=== PATIENT | male | born 1940 | race Caucasian/White ===

== ENCOUNTER 2018-12-30 18:23 | Inpatient (IN) | payer MEDICARE ==
[2018-12-30] VITALS (13 sets, daily range): BP systolic 81–156; BP diastolic 29–90
[~2018-12-30] VITALS: Ht 167.6 cm; Wt 58.7 kg
[~2018-12-30 18:23] MED LIST: AMLO10TA8 PO; AMLO1TAB12 PO; ASPI-484 PO; ASPI-667 PO; CEPH-350 PO; CHOL2000 PO; DICL75TA2 PO; FINA5TAB4 PO; FLUT1AER IH; HYDR25TA9 PO; LEVO25TA4 PO; METO25TA2 PO; OMEP20CA13 PO; PRAV20TA2 PO; RANO500T2 PO; ROSU10TA2 PO; SILO8CAP2 PO; SOLU-MEDROL IV STA; TOPI50TA8 PO; VALS160T3 PO
--- NOTE | 2018-12-30 18:24 | ER.PDOC ---
General Chief Complaint: Requesting Medical Care Stated Complaint: SYNCOPE Time seen by MD: 18:33 Source: patient, EMS Exam Limitations: no limitations, clinical condition History of Present Illness Initial Comments 2 min cpr for pulselessness Timing/Prior Episodes: single episode today Symptoms Prior to Episode: lightheadedness Loss of Consciousness: Prolonged (Minutes) Location of Injury: None Current Symptoms: lightheadedness, weak/absent pulse, weakness Allergies: Coded Allergies: No Known Allergies (Unverified , 04/13/17) Home Meds Active Scripts Metoprolol Succinate (TOPROL XL) 25 Mg Tab.er.24h, 25 MG PO daily for 30 Days Prov:MONCHO MEDLEY MD 04/20/17 Cephalexin (KEFLEX) 500 Mg Capsule, 500 MG PO TID for 7 Days Prov:MONCHO MEDLEY MD 04/20/17 Aspirin (ASPIRIN) 81 Mg Tab.chew, 81 MG PO daily for 30 Days Prov:MONCHO MEDLEY MD 04/20/17 Reported Medications Aspirin (ASPIRIN) 81 Mg Tab.chew, 1 TAB PO DAILY, #30 TAB 3 Refills 04/14/17 Fluticasone/Vilanterol (Breo Ellipta 100-25 Mcg INH) 1 Each Aer.pow.ba, 1 EACH IH DAILY 04/14/17 Rosuvastatin 10MG (CRESTOR 10MG) 10 Mg Tablet, 1 TAB PO DAILY, #30 TAB 5 Refills 04/14/17 Silodosin (RAPAFLO) 8 Mg Capsule, 1 CAP PO DAILY, #30 CAP 5 Refills 04/13/17 Amlodipine/Valsartan (EXFORGE 5-160 MG TABLET) 1 Each Tablet, 1 TAB PO DAILY, #30 TAB 5 Refills 04/13/17 Finasteride (FINASTERIDE) 5 Mg Tablet, 1 TAB PO DAILY, #30 TAB 11 Refills 04/13/17 Cholecalciferol (Vitamin D3) (VITAMIN D) 2,000 Unit Capsule, 1 CAP PO HS, #90 CAP 3 Refills 12/10/14 Topiramate (TOPIRAMATE) 50 Mg Tablet, 1 TAB PO HS, #60 TAB 12/10/14 Levothyroxine Sodium (LEVOTHYROXINE SODIUM) 25 Mcg Tablet, 1 TAB PO HS, #90 TAB 3 Refills 12/10/14 Omeprazole (OMEPRAZOLE) 20 Mg Capsule.dr, 1 CAP PO DAILY, #90 CAP 3 Refills 12/10/14 Past Medical History Medical History: arrhythmia, coronary artery disease, cardiac problems, congestive heart failure, other Surgical History: cardiac cath, pacemaker/ICD, other Family History Significant Family History: no pertinent family hx Social History Smoking: non-smoker Alcohol Use: none Drug Use: none Reviewed Nursing Reviewed: Vital Signs, Abn. Noted Review of Systems Constitutional: no symptoms reported EENTM: no symptoms reported Respiratory: shortness of breath Cardiovascular: chest pain Gastrointestinal: no symptoms reported Genitourinary: no symptoms reported Musculoskeletal: see HPI, other Skin: no symptoms reported Psychiatric/Neurological: no symptoms reported All Other Systems: Reviewed and Negative Physical Exam General Appearance: No Apparent Distress, WD/WN, Cachetic HEENT: PERRL/EOMI, Normal ENT Inspection, TMs Normal, Pharynx Normal Neck: Non-Tender, Full Range of Motion, Supple, Normal Inspection Cardiovascular/Respiratory: Regular Rate, Rhythm, No M/R/G, Normal Peripheral Pulses, No JVD, Normal Breath Sounds, No Respiratory Distress Gastrointestinal: Normal Bowel Sounds, No Organomegaly, No Pulsatile Mass, Non Tender, Soft Extremities: Normal Range of Motion, Non-Tender, Normal Inspection, No Pedal Edema, No Calf Tenderness, Normal Capillary Refill Psychiatric: Alert, Oriented x 3 Cranial Nerves: Normal Hearing, Normal Speech, PERRL Coordination/Gait: Normal Finger to Nose, Normal Gait, Negative Romberg's Sign Motor/Sensory: No Motor Deficit, No Sensory Deficit, No Pronator Drift, Negative Babinski's Sign Skin: Normal Color, Warm/Dry Lymphatic: No Adenopathy Comments CHEST ABRASION TO ANT CHEST. NOTE PATIENT INITIALLY SEEN BY DR SIMMS, Results/Orders Results/Orders Orders - IRVIN TIWARI DO Ct Head Wo Contrast (12/30/18 19:45) Potassium Chloride (Klor-Con 10) (12/30/18 20:00) Lactic Acid(Rt) (12/30/18 19:53) Arterial Blood Gas (12/30/18 20:17) Admit Orders (12/30/18 20:25) Vital Signs Date Time Temp Pulse Resp B/P (MAP) Pulse Ox O2 Delivery O2 Flow Rate FiO2 12/30/18 20:48 83 22 98/58 (71) 96 Nasal Canula 2.00 12/30/18 20:32 78 22 102/50 (67) 96 Nasal Canula 2.00 12/30/18 20:03 81 22 118/60 (79) 96 Nasal Canula 2.00 12/30/18 19:46 77 22 123/58 (79) 96 Nasal Canula 2.00 12/30/18 18:43 64 24 156/90 (112) 98 Nasal Canula 2.00 12/30/18 18:32 97.6 79 30 99/43 (61) 97 Non-Rebreather 97.6 12/30/18 18:32 97.6 79 30 97.6 12/30/18 18:32 97.6 79 30 Non-Rebreather 97.6 Administered Medications Medications (Trade) Dose Ordered Sig/Steff Route PRN Reason Start Time Stop Time Status Last Admin Dose Admin Levothyroxine Sodium (Levothyroxine Sodium) 25 mcg HS PO 12/30/18 21:00 01/29/19 20:59 12/30/18 21:57 25 MCG Methylprednisolone Sodium Succinate (Solu-Medrol) 250 mg STAT STAT IV 12/30/18 18:05 12/30/18 18:09 DC 12/30/18 18:42 250 MG Pantoprazole Sodium (Protonix Iv) 40 mg STAT STAT IV 12/30/18 20:33 12/30/18 21:01 DC 12/30/18 21:56 40 MG Potassium Chloride/Sodium Chloride 1,000 ml @ 125 mls/hr Q8H IV 12/30/18 20:30 01/29/19 20:29 12/30/18 21:56 125 MLS/HR Potassium Chloride 100 ml @ 50 mls/hr OT ONCE IV 12/30/18 20:30 12/30/18 22:29 DC 12/30/18 21:55 50 MLS/HR Sodium Chloride 1,000 ml @ 0 mls/hr Q0M ONCE IV 12/30/18 18:30 12/30/18 18:31 DC 12/30/18 18:42 1,200 MLS/HR Laboratory Tests Test 12/30/18 18:32 12/30/18 19:53 12/30/18 20:17 White Blood Count 3.4 10^3/uL (4.5-11.0) L Red Blood Count 3.97 10^6/uL (4.50-5.90) L Hemoglobin 12.3 g/dL (13.9-16.3) L Hematocrit 35.8 % (37.0-53.0) L Mean Corpuscular Volume 90.2 fL (78-100) Mean Corpuscular Hemoglobin 31.0 pg (26-34) Mean Corpuscular Hemoglobin Concent 34.4 g/dL (33-37) Red Cell Distribution Width 14.1 % (11.5-14.5) Platelet Count 185 10^3/uL (150-400) Mean Platelet Volume 10.6 fL (7.8-11.0) Neutrophils (%) (Auto) 82.3 % (41.0-85.0) Lymphocytes (%) (Auto) 8.5 % (24.0-44.0) L Monocytes (%) (Auto) 7.4 % (5.0-12.0) Neutrophils # (Auto) 2.8 10^3/uL (1.8-7.7) Lymphocytes # (Auto) 0.3 10^3/uL (1.0-4.8) L Monocytes # (Auto) 0.3 10^3/uL (0.3-0.8) Absolute Immature Granulocyte (auto 0.01 10^3 u/L (0-2) Immature Granulocytes % 0.30 % (0.00-0.50) Eosinophils % 0.6 % (0.0-5.0) Basophils % 0.9 % (0.0-0.2) H Basophils # 0.0 10^3/uL (0.0-0.1) Eosinophil Count 0.0 10^3/uL (0.0-0.2) Prothrombin Time 10.9 SEC (9.8-11.9) Prothrombin Time INR (Non-Therap) 1.1 D-Dimer 5.65 mg/L (0.19-0.49) *H Sodium Level 149 mmol/L (132-145) #H Potassium Level 2.2 mmol/L (3.6-5.2) *L Chloride Level 112.0 mmol/L (96-109) H Carbon Dioxide Level 20.3 mmol/L (20.0-32) Anion Gap 18.9 Blood Urea Nitrogen 60 mg/dL (7-18) H Creatinine 1.52 mg/dL (0.59-1.40) H Estimated GFR () 54.1 (>/=60) BUN/Creatinine Ratio 39.0 Glucose Level 134 mg/dL (70-110) H Calcium Level 7.4 mg/dL (8.4-10.5) L Magnesium Level 1.7 mg/dL (1.8-2.4) L Total Bilirubin 0.4 mg/dL (0.2-1.0) Aspartate Amino Transferase (AST) 14 U/L (0-35) Alanine Aminotransferase (ALT) 14 U/L (12-78) Alkaline Phosphatase 42 U/L (50-136) L Total Creatine Kinase 132 U/L (39-308) Troponin I < 0.02 ng/mL (0.00-0.05) Pro-B-Type Natriuretic Peptide 3866 pg/mL (0-450) H Total Protein 5.3 g/dL (6.4-8.2) L Albumin 1.8 g/dL (3.4-5.0) L Globulin 3.5 Helicobacter pylori Screen NEGATIVE (NEGATIVE) Blood Gas Sample Site RR RR Aly Test POSITIVE POSITIVE Lactic Acid (Blood Gas) 1.2 mmol/1 (0.50-2.0) 1.4 mmol/1 (0.50-2.0) Blood Gas Temperature 37 37 Blood pH 7.404 (7.350-7.450) Blood Gas PCO2 25.0 mmHg (35.0-45.0) L Blood Gas PO2 75.9 mmHg (80.0-100.0) L Blood Gas HCO3 15.3 mmol/L (22.0-26.0) L Blood Gas Base Excess -7.7 mmol/L (-2.0-2.0) L Arterial Blood Oxygen Saturation 93.8 % (94.0-97.00) L Deoxyhemoglobin 6.0 % (0.0-5.0) H Carboxyhemoglobin 1.5 % (0.0-3.9) Methemoglobin 1.0 % (0.00-5.0) Total Hemoglobin 13.3 % (12.0-17.8) Total Oxygen Concentration 17.2 % (13.5-17.5) Oxygen Delivery Method RA FiO2 21 % (20-101) Bicarbonate 16.0 mmol/L (23-27) L Progress Progress dr matheus TO ME AT 1928, CHART REVIEWED. EKG/XRAY/CT/US EKG Comments: PACED RHYTHM Consult/PCP Time Consult/PCP Called: 20:00 Consult/PCP: DR MEDLEY, WILL CALL BACK #2 Time Consult/PCP Called: 20:25 Consult/PCP: DR MEDLEY, GET ABG AND ADMIT TO ICU Departure Time of Disposition: 20:24 Disposition: 09 ADMITTED INPATIENT Impression: Primary Impression: Syncope Additional Impressions: Hypokalemia Dehydration Condition: Stable Duration or Time Spent with Pa: 20 MIN Problem Qualifiers TANVIR SIMMS MD Dec 30, 2018 18:24 IRVIN TIWARI DO Dec 30, 2018 20:02
[2018-12-30] MEDS ORDERED: NS 1000ML 1,000 ML IV ONE (18:30)
--- NOTE | 2018-12-30 18:39 | DIREP ---
PROCEDURE:CHEST 1 VIEW COMPARISON:[facility], CR, XRAY CHEST 2 VWS, 04/19/2017, 09:40 AM. INDICATIONS:dyspnea FINDINGS: LUNGS/PLEURA:No significant pulmonary parenchymal abnormalities. No effusions. VASCULATURE:Normal. Unremarkable pulmonary vasculature. CARDIAC:Normal. No cardiac silhouette abnormality or cardiomegaly. Pacemaker MEDIASTINUM:Normal. No visible mass or adenopathy. BONES:Mild degenerative disc disease and spondylosis without visible acute abnormalities. OTHER:Negative. CONCLUSION:No acute findings. No significant interval change Dictated by: Elio Her MD on 12/30/2018 at 06:38 PM
[2018-12-30] MEDS ORDERED: NS 1000ML 1,000 ML ONE (18:40)
[2018-12-30] MEDS ORDERED: SOLU-MEDROL ONE (18:41)
[2018-12-30 19:01] LABS: BASOPHIL % 0.9 % (0.0-0.2); EOSINOPHIL % 0.6 % (0.0-5.0); HEMOGLOBIN 12.3 g/dL (13.9-16.3); LYMPHOCYTES # 0.3 10^3/uL (1.0-4.8); LYMPHOCYTES % 8.5 % (24.0-44.0); MEAN CELL HGB CONCENTRATION 34.4 g/dL (33-37); MEAN CORP VOLUME 90.2 fL (78-100); MEAN PLATELET VOLUME 10.6 fL (7.8-11.0); MONOCYTES # 0.3 10^3/uL (0.3-0.8); MONOCYTES % 7.4 % (5.0-12.0); NEUTROPHIL # 2.8 10^3/uL (1.8-7.7); NEUTROPHILS % 82.3 % (41.0-85.0); RED CELL DISTRIBUTION WIDTH 14.1 % (11.5-14.5); WHITE BLOOD CELL 3.4 10^3/uL (4.5-11.0)
[2018-12-30 19:32] LABS: ALANINE AMINOTRANSFERASE(ML) 14 U/L (12-78); ALKALINE PHOSPHATASE 42 U/L (50-136); ASPARTATE AMINO TRANSFERASE 14 U/L (0-35); CALCIUM 7.4 mg/dL (8.4-10.5); CARBON DIOXIDE 20.3 mmol/L (20.0-32); GLUCOSE 134 mg/dL (70-110)
--- NOTE | 2018-12-30 19:59 | NUR ---
Vale Blanco on phone with Dr. Collazo
[2018-12-30] MEDS ORDERED: KLOR-CON 10 PO SCH (20:00)
--- NOTE | 2018-12-30 20:07 | DIREP ---
PROCEDURE:CT HEAD OR BRAIN W/O CONTRAST COMPARISON:None. INDICATIONS:SYNCOPE TECHNIQUE:CT images were created without intravenous contrast. FINDINGS: VENTRICLES:There is moderate prominence of the ventricles and cortical sulci consistent with age related involutional changes. CEREBRUM:Small nonspecific foci of diminished attenuation in the supratentorial white matter. CEREBELLUM:Negative. BRAINSTEM:Negative. BASAL CISTERNS:Negative. HEMORRHAGE:No MASS LESION:No ACUTE INFARCT:No SKULL:Normal. SINUSES:Some of the left mastoid air cells appear opacified OTHER:None CONCLUSION:Atrophy and white matter disease. No acute findings are identified Dictated by: Elio Her MD on 12/30/2018 at 08:06 PM
[2018-12-30 20:13] LABS: ALLEN TEST POSITIVE
[2018-12-30 20:23] LABS: ABG PH 7.404 (7.350-7.450); BE(B) -7.7 mmol/L (-2.0-2.0); HCO3act 15.3 mmol/L (22.0-26.0); pO2 75.9 mmHg (80.0-100.0)
[2018-12-30] MEDS ORDERED: KCL 20MEQ/100ML 100 ML IV ONE (20:30)
[2018-12-30] MEDS ORDERED: PROTONIX IV IV STA (20:33)
[2018-12-30] MEDS: PULMICORT IH SCH (21:00)
[2018-12-30] MEDS: CARAFATE PO SCH (21:00)
[2018-12-30] MEDS: XOPENEX IH SCH (21:00)
[2018-12-30] MEDS ORDERED: ZOFRAN IV PRN (21:00)
--- NOTE | 2018-12-30 21:34 | NUR ---
Pt on unit Pt arrived on unit via stretcher accompanied by this nurse and Kori Olivera RN. Pt oriented to room. Bed side monitor placed on pt. fluids provided. Pt refuses brody placement. Educated pt on need for brody but still refuses. Pt sitting up in bed watching TV. Family at bedside. Call light within reach.
[2018-12-30] MEDS ORDERED: PROTONIX IV IV ONE (21:47)
[2018-12-30] MEDS ORDERED: NS 500ML 500 ML IV ONE (21:48)
[2018-12-30] MEDS: NS 1000 ML/KCL 40MEQ 1,000 ML IV SCH (21:56)
[2018-12-30] MEDS: LEVOTHYROXINE SODIUM PO SCH (21:57)
[2018-12-30] MEDS ORDERED: MAGNESIUM SULFATE 50 ML IV ONE (23:30)
[2018-12-31] VITALS (72 sets, daily range): BP systolic 91–130; BP diastolic 33–69
[2018-12-31] MEDS: XOPENEX IH SCH ×4 (02:54→21:02)
[2018-12-31] MEDS: NS 1000 ML/KCL 40MEQ 1,000 ML IV SCH (04:36)
[2018-12-31 05:46] LABS: BASOPHIL % 0.7 % (0.0-0.2); EOSINOPHIL % 0.2 % (0.0-5.0); HEMOGLOBIN 13.1 g/dL (13.9-16.3); LYMPHOCYTES # 0.4 10^3/uL (1.0-4.8); LYMPHOCYTES % 8.7 % (24.0-44.0); MEAN CELL HGB 31.3 pg (26-34); MEAN CORP VOLUME 89.5 fL (78-100); MEAN PLATELET VOLUME 10.6 fL (7.8-11.0); MONOCYTES # 0.2 10^3/uL (0.3-0.8); MONOCYTES % 3.8 % (5.0-12.0); NEUTROPHIL # 3.9 10^3/uL (1.8-7.7); NEUTROPHILS % 86.6 % (41.0-85.0); PLATELET COUNT 177 10^3/uL (150-400); RED CELL DISTRIBUTION WIDTH 14.2 % (11.5-14.5); WHITE BLOOD CELL 4.5 10^3/uL (4.5-11.0)
[2018-12-31 06:02] LABS: ALANINE AMINOTRANSFERASE(ML) 15 U/L (12-78); ALKALINE PHOSPHATASE 43 U/L (50-136); ASPARTATE AMINO TRANSFERASE 16 U/L (0-35); CALCIUM 7.7 mg/dL (8.4-10.5); GLUCOSE 188 mg/dL (70-110)
[2018-12-31 06:27] LABS: BAND NEUTROPHILS 8 % (2-6); LYMPHOCYTE 12 % (25-36); MONOCYTE 0 % (3-9); SEGMENTED NEUTROPHILS 75 % (31-76)
[2018-12-31 06:28] LABS: EOSINOPHIL 1 % (1-4)
[2018-12-31] MEDS ORDERED: KCL 20MEQ/100ML 100 ML IV ONE (07:00)
[2018-12-31] MEDS ORDERED: D5W-1/2 NS/KCL 20MEQ 1,000 ML IV ONE (07:00)
--- NOTE | 2018-12-31 07:50 | NUR ---
BSC Assisted pt up to bedside commode x1 assist. Patient incontinent of bowel. 450 cc of loose yellow/brown stool mixed with urine noted with foul smell. Bathed patient using CHG wipes. Eunice care provided. Gown changed. Assisted pt back to bed for breakfast. No s/s of distress noted.
[2018-12-31] MEDS ORDERED: D5W-1/2NS/KCL 40MEQ 1,000 ML ONE ×2 (08:13→16:41)
[2018-12-31] MEDS ORDERED: CARAFATE ONE ×3 (08:13→16:58)
[2018-12-31] MEDS: CARAFATE PO SCH ×4 (08:16→21:08)
[2018-12-31] MEDS: KLOR-CON 10 PO SCH (08:19)
[2018-12-31] MEDS ORDERED: PULMICORT IH ONE (08:41)
[2018-12-31] MEDS ORDERED: XOPENEX IH ONE (08:41)
[2018-12-31] MEDS: D5W-1/2NS/KCL 40MEQ 1,000 ML IV SCH ×2 (09:00→16:48)
--- NOTE | 2018-12-31 09:30 | NUR ---
BSC Assisted pt up to bedside commode. 350 cc of yellow loose bowel movement and urine mixed noted. Eunice care provided. Clean brief applied per patient's request. Pt back to bed and placed back on bedside monitor. No s/s of distress noted. Daughter at bedside, and call light within reach. Will continue to monitor.
[2018-12-31] MEDS: PULMICORT IH SCH ×2 (09:43→21:02)
[2018-12-31] MEDS ORDERED: FLAGYL 500MG/ 100 ML NS 100 ML IV ONE ×2 (09:46→10:00)
--- NOTE | 2018-12-31 09:47 | NUR ---
Dr. Aj Rocha on phone checking on patient's status. Notified of current vital signs and lab results, and frequent liquid bowel movements. New orders received for cdiff sample, Flagyl 500mg IV q8hr, EKG this am, and to redraw CMP at 1600. RBTO.
--- NOTE | 2018-12-31 10:18 | PCM.EKG ---
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
[2018-12-31] MEDS: FLAGYL 500MG/ 100 ML NS 100 ML IV SCH ×2 (10:31→18:18)
--- NOTE | 2018-12-31 11:08 | PCM.EKG ---
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
--- NOTE | 2018-12-31 12:32 | HPH ---
ADMIT DATE: 12/30/2018 The patient was admitted in the late evening of 12/30/2018. I was called and I did put the orders on 12/30/2018. CHIEF COMPLAINT: Syncope with transient loss of consciousness, diarrhea, vomiting for 10 days, metabolic abnormalities. 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 His LV function was intact and he comes for followup on a periodic basis in the clinic for his pacer check and he had 10 day history of nausea, vomiting, diarrhea, had about 8-10 loose watery stools and low grade temperature. Did not see a physician, felt like he was going to get better on his own. He did not have any blood in his vomit or loose stools. He vomited half a dozen time to 10 times a day. No appetite and when he came in, he had multiple metabolic abnormalities with hypovolemia, hypotension with blood pressure 80/50. He got 2 liters of fluid in the Emergency Room and his temperature was normal, had a compensated pH, but had metabolic acidosis with respiratory alkalosis with normal pH with a bicarbonate of 16 and a potassium of 2.2, magnesium 1.6 and had significant acute kidney injury with BUN of 16, creatinine 1.52, which were normal in the office. Hence, was admitted with multiple biochemical abnormalities along with hypovolemia, hypotension with severe diarrhea and syncopal episode for further evaluation and management. ALLERGIES: None known. MEDICATIONS: He has been on metoprolol 25 mg once a day, aspirin 81 mg once a day and Breo Ellipta 1 puff daily, Crestor 10 mg once a day. He is on Rapaflo 8 mg daily which is for his prostate, amlodipine/valsartan (Exforge) 160-5 one tablet daily, finasteride 5 mg once a day, vitamin D3 2000 units daily and topiramate 50 mg once a day, Levothroid 25 mcg once a day, omeprazole 20 mg once a day. PAST MEDICAL HISTORY: History of degenerative conduction system disease and bradyarrhythmia post-pacer 2 years ago and non-flow obstructive coronary artery disease and intact LV systolic function, hypertension, hypertensive heart disease, chronic diastolic heart failure with moderately severe COPD with poor reactive component, has been on Breo-Ellipta and he has been doing well on multiple therapies, has lost significant weight recently, has chronic diastolic heart failure. SOCIAL HISTORY: Prior history of significant 40-50 pack years of smoking, not smoking at the present time. FAMILY HISTORY: Unremarkable. Not much history could be obtained. PHYSICAL EXAMINATION: GENERAL: When I saw him 1:1 on 12/31/2018, he felt almost 50% better, but at the time of admission in the Emergency Room, was lethargic, weak and his cognitive functions were decreased, but he is alert, awake, oriented and responsive and has a good comprehension and cognition. Height is 157 cm and 40.8 kilograms with a BMI 17.8. VITAL SIGNS: Heart rate is 100 and blood pressure 95/56 and respirations were 18, 99 saturation on 2 liters nasal cannula. He has had urine output close to total of 1200 mL and has had 3 loose BM this morning. HEENT: Leant and asthenically built and sunken eyeballs and appears to have dry skin and mucous membrane, but his higher mental functions are intact. HEENT, otherwise, unremarkable. NECK: No JVD, no carotid bruits. CHEST: Emphysematous chest. Poor air entry bilaterally. HEART: Sounds S1, S2 normal. Tachycardia noted. ABDOMEN: Scaphoid. Bowel sounds were present. No definite focal tenderness was noted. No organomegaly was elicited. Bowel sounds present. EXTREMITIES: Distal pulses poorly felt. NEUROLOGIC: No focal neuro deficit is noted. Proximal muscle wasting noted. LABORATORY DATA: Showed CBC of 12.3 hemoglobin, 3.4 white count and 2.2 potassium and 60 BUN and creatinine 1.52, 1.7 magnesium, 3866 ProBNP, troponin 0.02 and total protein 5.3, albumin 1.9, which is very low and D-dimer 5.6. Blood gas 7.40 pH with a pCO2 of 25, pO2 of 75 with a bicarbonate of 15 and lactic was 1.2 and subsequently 1.4. IMAGING STUDIES: Head CT showed cerebral atrophy consistent with his age and no strokes were noted and chest x-ray was unremarkable. IMPRESSION: 1. Hypotension, hypovolemia, dehydration, acute kidney injury due to severe diarrhea and nature of the diarrhea is unclear. It has been for 10 days and no blood in the stool is noted, but still one needs to be sure that he does not have Yersenia enterocolitis or Campylobacter diarrhea or other organisms are also possible with Shigella and salmonellosis with low-grade fever, but his leukocyte count is normal, but he does have multiple biochemical abnormalities, will require colonoscopy at some point in time, we will start him empirically Flagyl 2. Hypokalemia, hypomagnesemia, metabolic acidosis with compensatory respiratory alkalosis, chronic obstructive pulmonary disease, hypertension, hypertensive heart disease and degenerative conduction system disease post-pacer. PLAN: At this time, continue IV fluids, potassium replacement with potassium riders and oral potassium and bland diet and stool studies and further management will depend on the clinical course. Laxmichand MD Aj DR: NAEESH/parminder JOB# [id number]
[2018-12-31 13:15] LABS: BILIRUBIN,URINE NEGATIVE (NEGATIVE); UROBILINOGEN,URINE NORMAL (NEGATIVE)
[2018-12-31] MEDS ORDERED: IMODIUM PO PRN (13:30)
[2018-12-31 13:44] LABS: APPEARANCE,URINE SLIGHTLY HAZY (CLEAR); UA COLOR AMBER (YELLOW)
[2018-12-31] MEDS: BUMINATE 25% IV SCH ×2 (14:56→21:08)
[2018-12-31 16:44] LABS: CALCIUM 8.2 mg/dL (8.4-10.5); CARBON DIOXIDE 16.1 mmol/L (20.0-32)
--- NOTE | 2018-12-31 17:29 | NUR ---
Dr. Aj Rocha notified of lab results and stool specimen results. Also made aware of blood sugar of 358 and patient is on [id number]. Awaiting response.
[2018-12-31] MEDS ORDERED: BUMINATE 25% IV SCH (18:00)
[2018-12-31] MEDS ORDERED: NS 250ML 250 ML IV ONE (18:01)
--- NOTE | 2018-12-31 18:40 | NUR ---
Dr. Aj Rocha on phone. Notified of positive occult blood in stool, blood glucose of 358, potassium of 3.1, and current fluids. New order received to keep on same fluids with sliding scale insulin coverage per his protocol. RBTO.
[2018-12-31] MEDS: LEVOTHYROXINE SODIUM PO SCH (21:07)
[2018-12-31] MEDS: TOPAMAX PO SCH (21:08)
[2018-12-31] MEDS: HUMULIN R SQ SCH (21:33)
[2019-01-01] VITALS (16 sets, daily range): BP systolic 112–135; BP diastolic 39–75
[2019-01-01] MEDS: FLAGYL 500MG/ 100 ML NS 100 ML IV SCH ×3 (02:02→18:29)
[2019-01-01] MEDS: D5W-1/2NS/KCL 40MEQ 1,000 ML IV SCH ×2 (02:28→13:28)
[2019-01-01] MEDS: BUMINATE 25% IV SCH ×4 (02:55→21:01)
[2019-01-01] MEDS: XOPENEX IH SCH ×4 (02:56→20:29)
[2019-01-01 05:25] LABS: BASOPHIL % 1.1 % (0.0-0.2); EOSINOPHIL % 1.1 % (0.0-5.0); HEMOGLOBIN 11.3 g/dL (13.9-16.3); LYMPHOCYTES # 0.3 10^3/uL (1.0-4.8); LYMPHOCYTES % 6.6 % (24.0-44.0); MEAN CELL HGB 30.5 pg (26-34); MEAN CELL HGB CONCENTRATION 33.9 g/dL (33-37); MEAN PLATELET VOLUME 11.5 fL (7.8-11.0); MONOCYTES # 0.3 10^3/uL (0.3-0.8); MONOCYTES % 6.9 % (5.0-12.0); NEUTROPHIL # 3.1 10^3/uL (1.8-7.7); NEUTROPHILS % 83.5 % (41.0-85.0); PLATELET COUNT 137 10^3/uL (150-400); RED CELL DISTRIBUTION WIDTH 14.5 % (11.5-14.5); WHITE BLOOD CELL 3.8 10^3/uL (4.5-11.0)
[2019-01-01 05:37] LABS: CALCIUM 8.4 mg/dL (8.4-10.5); CARBON DIOXIDE 15.7 mmol/L (20.0-32)
--- NOTE | 2019-01-01 07:00 | NUR ---
RECEIVED REPORT AND PATIENT CARE ASSUMED.
[2019-01-01] MEDS: PULMICORT IH SCH ×2 (07:23→20:29)
[2019-01-01] MEDS: HUMULIN R SQ SCH ×4 (07:35→21:00)
[2019-01-01] MEDS: CARAFATE PO SCH ×4 (07:37→21:01)
--- NOTE | 2019-01-01 08:20 | NUR ---
BM/HCG BATH PATIENT HAD A LARGE LOOSE WATERY STOOL. PATIENT ASSISTED TO RESTROOM. PATIENT SPONGED BATHED WITH HCG WIPES, CLEAN GOWN AND LINENS CHANGED TO BED. PATIENT ASSIST BACK INTO BED. HOB ELEVATED 30 DEGREES. CALL LIGHT WITHIN EASY REACH.
[2019-01-01] MEDS: KLOR-CON 10 PO SCH (08:51)
--- NOTE | 2019-01-01 09:14 | NUR ---
PATIENT RESTING QUIETLY. NO DISTRESS NOTED AT THIS TIME.
--- NOTE | 2019-01-01 09:51 | NUR ---
FLUIDS DECREASED TO 75CC/HR ORDERED PER DOCTOR.
[2019-01-01 10:38] LABS: BAND NEUTROPHILS 5 % (2-6); LYMPHOCYTE 7 % (25-36); MONOCYTE 15 % (3-9); OTHER CELL TYPE 3; SEGMENTED NEUTROPHILS 69 % (31-76)
[2019-01-01 10:41] LABS: BURR CELLS 1+ (NEGATIVE)
--- NOTE | 2019-01-01 12:24 | NUR ---
LUNCH/HELD INSULIN PATIENT REFUSED TO EAT LUNCH. STATED HAVING NO APPETITE. INSULIN HELD.
--- NOTE | 2019-01-01 12:45 | NUR ---
DR. WAN AT BEDSIDE ASSESSING PATIENT AND DISCUSSING PLAN OF CARE WITH PATIENT AND FAMILY. PATIENT TO TRANSFER TO MED/SURG STATUS.
--- NOTE | 2019-01-01 12:54 | PRM.PN ---
Subjective Subjective Date: Jan 01, 2019 Time: 12:30 Subjective I saw patient today as requested by Dr. Rocha. Labs, imaging reviewed. Patient feels diarrhea is getting better. He has cough that is worsening since this AM. No other acute issues. Patient History: Chronic obstructive pulmonary disease Diabetes mellitus FH: [place] (myocardial infarction) G8 BROTHER, Hypertension Unknown 32 MOTHER, 33 FATHER, G8 BROTHER, G8 BROTHER, G8 BROTHER, G8 BROTHER G8 BROTHER G8 BROTHER G8 BROTHER G8 SISTER, G8 SISTER, G8 SISTER G8 SISTER 19 CHILD 19 CHILD 19 CHILD No Family History of: Alzheimer's disease Asthma Cerebrovascular disorder Congestive heart failure Diabetes insipidus Parkinson's disease VTE VTE Risk Total Score: >5 VTE Risk Score VTE Risk: Score 0-1 = Low Risk (Aggressive mobilization; early ambulation; no VTE prophylaxis required) Score 2: Moderate Risk (Intermittent/Pneumatic Compression Device OR Lovenox/Heparin/Coumadin) Score 3-4: High Risk (Intermittent/Pneumatic Compression Device AND Lovenox/Heparin/Coumadin) Score > or =5: Highest Risk (Intermittent/Pneumatic Compression Device AND Lovenox/Heparin/Coumadin) Review of Systems Allergies: Coded Allergies: No Known Allergies (Unverified , 04/13/17) Scheduled Amlodipine/Valsartan (Exforge 5-160 Mg Tablet), 1 TAB PO DAILY, (Reported) Aspirin (Aspirin), 1 TAB PO DAILY, (Reported) Aspirin (Aspirin), 81 MG PO daily Cephalexin (Keflex), 500 MG PO TID Cholecalciferol (Vitamin D3) (Vitamin D), 1 CAP PO HS, (Reported) Finasteride (Finasteride), 1 TAB PO DAILY, (Reported) Fluticasone/Vilanterol (Breo Ellipta 100-25 Mcg INH), 1 EACH IH DAILY, (Reported) Levothyroxine Sodium (Levothyroxine Sodium), 1 TAB PO HS, (Reported) Metoprolol Succinate (Toprol Xl), 25 MG PO daily Omeprazole (Omeprazole), 1 CAP PO DAILY, (Reported) Rosuvastatin 10MG (Crestor 10MG), 1 TAB PO DAILY, (Reported) Silodosin (Rapaflo), 1 CAP PO DAILY, (Reported) Topiramate (Topiramate), 1 TAB PO HS, (Reported) Objective Vitals and I/O Vital Sign - Last 24 Hours 12/31/18 12/31/18 12/31/18 12/31/18 13:01 13:16 13:31 13:46 Pulse 94 94 86 84 Resp 22 20 21 20 B/P (MAP) 104/63 (77) 103/62 (76) 116/64 (81) 106/62 (77) Pulse Ox 98 94 100 12/31/18 12/31/18 12/31/18 12/31/18 14:01 14:15 14:16 14:22 Pulse 80 88 96 81 Resp 22 17 22 B/P (MAP) 108/62 (77) 109/66 (80) Pulse Ox 96 95 98 98 12/31/18 12/31/18 12/31/18 12/31/18 14:34 14:48 15:03 15:18 Pulse 93 84 85 71 Resp 20 23 21 21 B/P (MAP) 106/69 (81) 95/53 (67) 99/69 (79) 115/62 (79) Pulse Ox 98 98 12/31/18 12/31/18 12/31/18 12/31/18 15:33 15:48 16:03 16:18 Pulse 87 93 73 81 Resp 20 19 20 20 B/P (MAP) 104/59 (74) 116/56 (76) 112/64 (80) 106/60 (75) Pulse Ox 95 98 94 12/31/18 12/31/18 12/31/18 12/31/18 16:20 16:45 16:55 17:00 Temp 97.3 97.3 Pulse 86 74 89 Resp 19 20 20 B/P (MAP) 118/56 (76) 112/58 (76) Pulse Ox 95 96 97 O2 Delivery Nasal Cannula O2 Flow Rate 2.00 12/31/18 12/31/18 12/31/18 12/31/18 17:15 18:18 19:00 19:41 Temp 97.8 97.8 Pulse 94 85 82 Resp 20 19 20 B/P (MAP) 119/65 (83) 127/65 (85) 120/60 (80) Pulse Ox 94 94 95 O2 Delivery Nasal Cannula O2 Flow Rate 2.00 12/31/18 12/31/18 12/31/18 12/31/18 19:58 21:00 21:02 21:03 Temp 97.8 97.8 Pulse 84 83 85 85 Resp 18 20 16 18 B/P (MAP) 109/62 (78) 115/65 (82) Pulse Ox 95 93 94 94 O2 Delivery Nasal Cannula O2 Flow Rate 2.00 FiO2 28 12/31/18 12/31/18 12/31/18 12/31/18 21:07 22:00 23:00 23:40 Pulse 73 79 87 89 Resp 18 20 20 B/P (MAP) 125/62 (83) 107/63 (78) 124/65 (84) Pulse Ox 97 95 95 98 01/01/19 01/01/19 01/01/19 01/01/19 00:00 00:00 01:00 02:00 Temp 97.9 97.9 Pulse 74 86 89 Resp 18 20 18 B/P (MAP) 126/65 (85) 124/68 (86) 130/69 (89) Pulse Ox 96 94 93 O2 Delivery Nasal Cannula O2 Flow Rate 2.00 01/01/19 01/01/19 01/01/19 01/01/19 02:21 02:56 02:59 03:00 Pulse 75 91 91 88 Resp 18 18 18 B/P (MAP) 125/63 (83) 131/68 (89) Pulse Ox 93 94 97 95 01/01/19 01/01/19 01/01/19 01/01/19 04:00 04:00 04:54 05:08 Temp 97.7 97.7 Pulse 84 87 Resp 20 B/P (MAP) 113/48 (69) 113/39 (63) Pulse Ox 96 95 O2 Delivery Nasal Cannula O2 Flow Rate 2.00 01/01/19 01/01/19 01/01/19 01/01/19 06:03 07:04 07:09 07:24 Temp 97.8 97.8 Pulse 92 88 83 Resp 22 B/P (MAP) 112/62 (79) 120/66 (84) Pulse Ox 93 92 28 O2 Delivery Nasal Cannula Nasal Cannula O2 Flow Rate 2.00 2.00 FiO2 28 01/01/19 01/01/19 01/01/19 01/01/19 07:25 07:34 07:51 09:03 Pulse 86 91 94 82 Resp 22 22 22 21 B/P (MAP) 131/68 (89) 121/67 (85) Pulse Ox 93 96 94 97 01/01/19 01/01/19 01/01/19 01/01/19 10:09 10:51 11:15 12:15 Pulse 77 91 100 Resp 22 20 21 B/P (MAP) 123/62 (82) 122/65 (84) 135/66 (89) Pulse Ox 96 96 94 O2 Delivery Nasal Cannula O2 Flow Rate 2.00 Intake and Output0 12/31/18 12/31/18 01/01/19 15:00 23:00 07:00 Intake Total 232 ml 2014 ml 1837 ml Output Total 1400 ml 500 ml 450 ml Balance -1168 ml 1514 ml 1387 ml General: Alert, Oriented X3, Cooperative, No acute distress HEENT: Atraumatic, PERRLA, EOMI, Mucous membr. moist/pink Neck: Supple, No JVD Lungs: Other (diffuse wheezing, decreased aeration) Heart: Normal S1, Normal S2, No murmurs Abdomen: Normal bowel sounds, Soft, No tenderness Extremities: No edema, Normal pulses, No tenderness/swelling Skin: No rashes, No breakdown, No significant lesion Neuro: Normal speech, Strength at 5/5 X4 ext, Normal tone, Sensation intact, Cranial nerves 3-12 NL Psych/Mental Status: Mental status NL, Mood NL All Results(Lab/Rad) Laboratory Tests Test 12/31/18 14:00 12/31/18 16:20 12/31/18 20:58 01/01/19 05:10 Stool Occult Blood (IFOB) POSITIVE Stool Lactoferrin (LAB) POSITIVE Clostridium difficile Screen NEGATIVE Clostridium Difficile Toxin A & B NEGATIVE Sodium Level 146 mmol/L 147 mmol/L Potassium Level 3.1 mmol/L 3.2 mmol/L Chloride Level 115.0 mmol/L 115.0 mmol/L Carbon Dioxide Level 16.1 mmol/L 15.7 mmol/L Anion Gap 18.0 19.5 Blood Urea Nitrogen 52 mg/dL 42 mg/dL Creatinine 1.14 mg/dL 0.84 mg/dL Estimated GFR () 75.4 107.2 BUN/Creatinine Ratio 45.0 50.0 Glucose Level 358 mg/dL 297 mg/dL Calcium Level 8.2 mg/dL 8.4 mg/dL Total Bilirubin 0.4 mg/dL 0.4 mg/dL Aspartate Amino Transf (AST/SGOT) 13 U/L 7 U/L Alanine Aminotransferase (ALT/SGPT) 11 U/L 13 U/L Alkaline Phosphatase 42 U/L 31 U/L Total Protein 6.0 g/dL 6.0 g/dL Albumin 2.5 g/dL 3.1 g/dL Globulin 3.5 2.9 Bedside Glucose 297 White Blood Count 3.8 10^3/uL Red Blood Count 3.70 10^6/uL Hemoglobin 11.3 g/dL Hematocrit 33.3 % Mean Corpuscular Volume 90.0 fL Mean Corpuscular Hemoglobin 30.5 pg Mean Corpuscular Hemoglobin Concent 33.9 g/dL Red Cell Distribution Width 14.5 % Platelet Count 137 10^3/uL Mean Platelet Volume 11.5 fL Neutrophils (%) (Auto) 83.5 % Lymphocytes (%) (Auto) 6.6 % Monocytes (%) (Auto) 6.9 % Neutrophils # (Auto) 3.1 10^3/uL Lymphocytes # (Auto) 0.3 10^3/uL Monocytes # (Auto) 0.3 10^3/uL Absolute Immature Granulocyte (auto 0.03 10^3 u/L Differential Total Cells Counted 100 #CELLS Immature Granulocytes % 0.80 % Eosinophils % 1.1 % Basophils % 1.1 % Segmented Neutrophils 69 % Band Neutrophils 5 % Lymphocytes 7 % Monocytes 15 % Basophils # 0.0 10^3/uL Nucleated Red Blood Cells % Atypical Lymphocytes 1 % Other Cell Type 3 Platelet Estimate DECREASED Tear Drop Cells 1+ [place] Cells 1+ Eosinophil Count 0.0 10^3/uL Magnesium Level 2.2 mg/dL Test 01/01/19 11:37 Bedside Glucose 230 Current Medications Medications (Trade) Dose Ordered Sig/Steff Route PRN Reason Start Time Stop Time Status Last Admin Dose Admin Methylprednisolone Sodium Succinate (Solu-Medrol) 250 mg STAT STAT IV 12/30/18 18:05 12/30/18 18:09 DC 12/30/18 18:42 Sodium Chloride 1,000 ml @ 0 mls/hr Q0M ONCE IV 12/30/18 18:30 12/30/18 18:31 DC 12/30/18 18:42 Sodium Chloride 1,000 ml @ ud STK-MED ONCE .ROUTE 12/30/18 18:40 12/30/18 18:43 DC Methylprednisolone Sodium Succinate (Solu-Medrol) 125 mg STK-MED ONCE .ROUTE 12/30/18 18:41 12/30/18 18:43 DC Potassium Chloride (Klor-Con 10) 20 meq STAT PO 12/30/18 20:00 12/31/18 08:56 DC 12/31/18 05:37 Potassium Chloride 100 ml @ 50 mls/hr OT ONCE IV 12/30/18 20:30 12/30/18 22:29 DC 12/30/18 21:55 Potassium Chloride/Sodium Chloride 1,000 ml @ 125 mls/hr Q8H IV 12/30/18 20:30 12/31/18 06:36 DC 12/31/18 04:36 Levothyroxine Sodium (Levothyroxine Sodium) 25 mcg HS PO 12/30/18 21:00 01/29/19 20:59 12/31/18 21:07 Topiramate (Topamax) 50 mg HS PO 12/31/18 21:00 01/30/19 20:59 12/31/18 21:08 Pantoprazole Sodium (Protonix Iv) 40 mg STAT STAT IV 12/30/18 20:33 12/30/18 21:01 DC 12/30/18 21:56 Ondansetron HCl (Zofran) 4 mg Q4H PRN IV NAUSEA / VOMITING 12/30/18 21:00 01/29/19 20:59 Potassium Chloride (Klor-Con 10) 20 meq DAILY PO 12/31/18 09:00 01/30/19 08:59 01/01/19 08:51 Sucralfate (Carafate) 1 gm ACHS PO 12/30/18 21:00 01/29/19 20:59 01/01/19 11:33 Budesonide (Pulmicort) 0.5 mg RTBID IH 12/30/18 21:00 01/29/19 20:59 01/01/19 07:23 Levalbuterol HCl (Xopenex) 0.63 mg RTQ6 IH 12/30/18 21:00 01/29/19 20:59 01/01/19 07:23 Pantoprazole Sodium (Protonix Iv) 40 mg STK-MED ONCE IV 12/30/18 21:47 12/30/18 21:48 DC Sodium Chloride 500 ml @ ud STK-MED ONCE IV 12/30/18 21:48 12/30/18 21:49 DC Magnesium Sulfate 50 ml @ 50 mls/hr OT ONCE IV 12/30/18 23:30 12/31/18 03:41 DC 12/30/18 23:19 Potassium Chloride 100 ml @ 50 mls/hr OT ONCE IV 12/31/18 07:00 12/31/18 08:59 DC 12/31/18 07:36 Potassium Chloride/Dextrose/ Sod Cl 1,000 ml @ 125 mls/hr Q8H ONCE IV 12/31/18 07:00 12/31/18 08:59 DC 12/31/18 08:17 Sucralfate (Carafate) 1 gm STK-MED ONCE .ROUTE 12/31/18 08:13 12/31/18 08:14 DC Potassium Chloride/Dextrose/ Sod Cl 1,000 ml @ ud STK-MED ONCE .ROUTE 12/31/18 08:13 12/31/18 08:14 DC Levalbuterol HCl (Xopenex) 0.63 mg STK-MED ONCE IH 12/31/18 08:41 12/31/18 08:42 DC Budesonide (Pulmicort) 0.5 mg STK-MED ONCE IH 12/31/18 08:41 12/31/18 08:42 DC Potassium Chloride/Dextrose/ Sod Cl 1,000 ml @ 75 mls/hr [id number] IV 12/31/18 09:00 01/30/19 06:59 01/01/19 02:28 Metronidazole 100 ml @ ud STK-MED ONCE IV 12/31/18 09:46 12/31/18 10:03 DC Metronidazole 100 ml @ 100 mls/hr Q8H ONCE IV 12/31/18 10:00 12/31/18 10:03 DC Metronidazole 100 ml @ 100 mls/hr Q8H IV 12/31/18 10:30 01/30/19 10:29 01/01/19 09:56 Sucralfate (Carafate) 1 gm STK-MED ONCE .ROUTE 12/31/18 11:14 12/31/18 11:15 DC Albumin Human (Buminate 25%) 100 ml Q6HR IV 12/31/18 18:00 12/31/18 18:00 DC Loperamide HCl (Imodium) 2 mg PRN PRN PO DIARRHEA 12/31/18 13:30 01/30/19 13:29 12/31/18 13:41 Albumin Human (Buminate 25%) 100 ml Q6H IV 12/31/18 15:00 01/30/19 17:59 01/01/19 08:50 Potassium Chloride/Dextrose/ Sod Cl 1,000 ml @ STK-MED ONCE .ROUTE 12/31/18 16:41 12/31/18 16:42 DC Sucralfate (Carafate) 1 gm STK-MED ONCE .ROUTE 12/31/18 16:58 12/31/18 17:00 DC Sodium Chloride 250 ml @ STK-MED ONCE IV 12/31/18 18:01 12/31/18 18:02 DC Insulin Human Regular (Humulin R) Give 30 minutes before meal ACHS SQ 12/31/18 21:00 01/30/19 20:59 01/01/19 07:35 Course Sepsis Screening Results: Posi: POSITIVE Sepsis Qualifier/Stage: SEPSIS RISK Duration or Total Time Spent w: 20 MIN Vitals & review Data Vital Sign - Last 24 Hours 12/31/18 12/31/18 12/31/18 12/31/18 13:01 13:16 13:31 13:46 Pulse 94 94 86 84 Resp 22 20 21 20 B/P (MAP) 104/63 (77) 103/62 (76) 116/64 (81) 106/62 (77) Pulse Ox 98 94 100 12/31/18 12/31/18 12/31/18 12/31/18 14:01 14:15 14:16 14:22 Pulse 80 88 96 81 Resp 21 22 17 22 B/P (MAP) 108/62 (77) 109/66 (80) Pulse Ox 96 95 98 98 12/31/18 12/31/18 12/31/18 12/31/18 14:34 14:48 15:03 15:18 Pulse 93 84 85 71 Resp 20 23 21 21 B/P (MAP) 106/69 (81) 95/53 (67) 99/69 (79) 115/62 (79) Pulse Ox 98 98 12/31/18 12/31/18 12/31/18 12/31/18 15:33 15:48 16:03 16:18 Pulse 87 93 73 81 Resp 20 19 20 20 B/P (MAP) 104/59 (74) 116/56 (76) 112/64 (80) 106/60 (75) Pulse Ox 95 98 94 12/31/18 12/31/18 12/31/18 12/31/18 16:20 16:45 16:55 17:00 Temp 97.3 97.3 Pulse 86 74 89 Resp 19 20 20 B/P (MAP) 118/56 (76) 112/58 (76) Pulse Ox 95 96 97 O2 Delivery Nasal Cannula O2 Flow Rate 2.00 12/31/18 12/31/18 12/31/18 12/31/18 17:15 18:18 19:00 19:41 Temp 97.8 97.8 Pulse 94 85 82 Resp 20 19 20 B/P (MAP) 119/65 (83) 127/65 (85) 120/60 (80) Pulse Ox 94 94 95 O2 Delivery Nasal Cannula O2 Flow Rate 2.00 12/31/18 12/31/18 12/31/18 12/31/18 19:58 21:00 21:02 21:03 Temp 97.8 97.8 Pulse 84 83 85 85 Resp 18 20 16 18 B/P (MAP) 109/62 (78) 115/65 (82) Pulse Ox 95 93 94 94 O2 Delivery Nasal Cannula O2 Flow Rate 2.00 FiO2 28 12/31/18 12/31/18 12/31/18 12/31/18 21:07 22:00 23:00 23:40 Pulse 73 79 87 89 Resp 18 20 20 B/P (MAP) 125/62 (83) 107/63 (78) 124/65 (84) Pulse Ox 97 95 95 98 01/01/19 01/01/19 01/01/19 01/01/19 00:00 00:00 01:00 02:00 Temp 97.9 97.9 Pulse 74 86 89 Resp 18 20 18 B/P (MAP) 126/65 (85) 124/68 (86) 130/69 (89) Pulse Ox 96 94 93 O2 Delivery Nasal Cannula O2 Flow Rate 2.00 701/01/19 01/01/19 01/01/19 02:21 02:56 02:59 03:00 Pulse 75 91 91 88 Resp 20 18 18 18 B/P (MAP) 125/63 (83) 131/68 (89) Pulse Ox 93 94 97 95 01/01/19 01/01/19 01/01/19 01/01/19 04:00 04:00 04:54 05:08 Temp 97.7 97.7 Pulse 84 87 Resp 18 20 B/P (MAP) 113/48 (69) 113/39 (63) Pulse Ox 96 95 O2 Delivery Nasal Cannula O2 Flow Rate 2.00 01/01/19 01/01/19 01/01/19 01/01/19 06:03 07:04 07:09 07:24 Temp 97.8 97.8 Pulse 92 88 83 Resp 22 B/P (MAP) 112/62 (79) 120/66 (84) Pulse Ox 93 92 28 O2 Delivery Nasal Cannula Nasal Cannula O2 Flow Rate 2.00 2.00 FiO2 28 01/01/19 01/01/19 01/01/19 01/01/19 07:25 07:34 07:51 09:03 Pulse 86 91 94 82 Resp 22 22 21 B/P (MAP) 131/68 (89) 121/67 (85) Pulse Ox 93 96 94 97 01/01/19 01/01/19 01/01/19 01/01/19 10:09 10:51 11:15 12:15 Pulse 77 91 100 Resp 22 21 B/P (MAP) 123/62 (82) 122/65 (84) 135/66 (89) Pulse Ox 96 96 94 O2 Delivery Nasal Cannula O2 Flow Rate 2.00 Intake and Output 12/31/18 12/31/18 01/01/19 15:00 23:00 07:00 Intake Total 232 ml 2014 ml 1837 ml Output Total 1400 ml 500 ml 450 ml Balance -1168 ml 1514 ml 1387 ml Laboratory Tests Test 12/30/18 18:32 12/30/18 19:05 12/30/18 19:53 12/30/18 20:17 White Blood Count 3.4 10^3/uL Red Blood Count 3.97 10^6/uL Hemoglobin 12.3 g/dL Hematocrit 35.8 % Mean Corpuscular Volume 90.2 fL Mean Corpuscular Hemoglobin 31.0 pg Mean Corpuscular Hemoglobin Concent 34.4 g/dL Red Cell Distribution Width 14.1 % Platelet Count 185 10^3/uL Mean Platelet Volume 10.6 fL Neutrophils (%) (Auto) 82.3 % Lymphocytes (%) (Auto) 8.5 % Monocytes (%) (Auto) 7.4 % Neutrophils # (Auto) 2.8 10^3/uL Lymphocytes # (Auto) 0.3 10^3/uL Monocytes # (Auto) 0.3 10^3/uL Absolute Immature Granulocyte (auto 0.01 10^3 u/L Immature Granulocytes % 0.30 % Eosinophils % 0.6 % Basophils % 0.9 % Basophils # 0.0 10^3/uL Eosinophil Count 0.0 10^3/uL Prothrombin Time 10.9 SEC Prothrombin Time INR (Non-Therap) 1.1 D-Dimer 5.65 mg/L Sodium Level 149 mmol/L Potassium Level 2.2 mmol/L Chloride Level 112.0 mmol/L Carbon Dioxide Level 20.3 mmol/L Anion Gap 18.9 Blood Urea Nitrogen 60 mg/dL Creatinine 1.52 mg/dL Estimated GFR () 54.1 BUN/Creatinine Ratio 39.0 Glucose Level 134 mg/dL Calcium Level 7.4 mg/dL Magnesium Level 1.7 mg/dL Total Bilirubin 0.4 mg/dL Aspartate Amino Transf (AST/SGOT) 14 U/L Alanine Aminotransferase (ALT/SGPT) 14 U/L Alkaline Phosphatase 42 U/L Total Creatine Kinase 132 U/L Troponin I < 0.02 ng/mL Pro-B-Type Natriuretic Peptide 3866 pg/mL Total Protein 5.3 g/dL Albumin 1.8 g/dL Globulin 3.5 Helicobacter pylori Screen NEGATIVE Differential Total Cells Counted 100 #CELLS Segmented Neutrophils 75 % Band Neutrophils 8 % Lymphocytes 12 % Monocytes 0 % Absolute Eosinophils (Manual) 1 % Metamyelocytes 4 % Platelet Estimate ADEQUATE Platelet Morphology NORMAL Blood Morphology Comment NORMAL MORPHOLOGY Blood Gas Sample Site RR RR Aly Test POSITIVE POSITIVE Lactic Acid (Blood Gas) 1.2 mmol/1 1.4 mmol/1 Blood Gas Temperature 37 37 Blood Gas pH 7.404 Blood Gas PCO2 25.0 mmHg Blood Gas PO2 75.9 mmHg Blood Gas HCO3 15.3 mmol/L Blood Gas Base Excess -7.7 mmol/L Arterial Blood Oxygen Saturation 93.8 % Deoxyhemoglobin 6.0 % Carboxyhemoglobin 1.5 % Methemoglobin 1.0 % Total Hemoglobin 13.3 % Total Oxygen Concentration 17.2 % Oxygen Delivery Method (LAB) RA FiO2 21 % Bicarbonate 16.0 mmol/L Test 12/31/18 05:24 12/31/18 12:20 12/31/18 14:00 12/31/18 16:20 White Blood Count 4.5 10^3/uL Red Blood Count 4.18 10^6/uL Hemoglobin 13.1 g/dL Hematocrit 37.4 % Mean Corpuscular Volume 89.5 fL Mean Corpuscular Hemoglobin 31.3 pg Mean Corpuscular Hemoglobin Concent 35.0 g/dL Red Cell Distribution Width 14.2 % Platelet Count 177 10^3/uL Mean Platelet Volume 10.6 fL Neutrophils (%) (Auto) 86.6 % Lymphocytes (%) (Auto) 8.7 % Monocytes (%) (Auto) 3.8 % Neutrophils # (Auto) 3.9 10^3/uL Lymphocytes # (Auto) 0.4 10^3/uL Monocytes # (Auto) 0.2 10^3/uL Eosinophils % 0.2 % Basophils % 0.7 % Basophils # 0.0 10^3/uL Eosinophil Count 0.0 10^3/uL Sodium Level 151 mmol/L 146 mmol/L Potassium Level 2.6 mmol/L 3.1 mmol/L Chloride Level 115.0 mmol/L 115.0 mmol/L Carbon Dioxide Level 21.0 mmol/L 16.1 mmol/L Anion Gap 17.6 18.0 Blood Urea Nitrogen 55 mg/dL 52 mg/dL Creatinine 1.06 mg/dL 1.14 mg/dL Estimated GFR () 82.0 75.4 BUN/Creatinine Ratio 51.0 45.0 Glucose Level 188 mg/dL 358 mg/dL Calcium Level 7.7 mg/dL 8.2 mg/dL Total Bilirubin 0.3 mg/dL 0.4 mg/dL Aspartate Amino Transf (AST/SGOT) 16 U/L 13 U/L Alanine Aminotransferase (ALT/SGPT) 15 U/L 11 U/L Alkaline Phosphatase 43 U/L 42 U/L Troponin I < 0.02 ng/mL Total Protein 5.6 g/dL 6.0 g/dL Albumin 1.9 g/dL 2.5 g/dL Globulin 3.7 3.5 Urine Collection Type UNKNOWN Urine Color SUSANA Urine Appearance SLIGHTLY HAZY Urine Bilirubin NEGATIVE MG/DL Urine Ketones NEGATIVE Urine Specific [place] 1.010 Urine pH 6 Urine Protein 30 mg/dL Urine Urobilinogen NORMAL Urine Nitrate NEGATIVE Urine Leukocyte Esterase NEGATIVE Urine Blood NEGATIVE Urine RBC NONE SEEN RBC/HPF Urine WBC 2-5 WBC/HPF Urine Squamous Epithelial Cells RARE #/HPF Urine Renal Epithelial Cells NONE SEEN #/HPF Urine Bacteria RARE Urine Hyaline Casts 2-5 Urine Glucose NORMAL Stool Occult Blood (IFOB) POSITIVE Stool Lactoferrin (LAB) POSITIVE Clostridium difficile Screen NEGATIVE Clostridium Difficile Toxin A & B NEGATIVE Test 12/31/18 20:58 01/01/19 05:10 01/01/19 11:37 Bedside Glucose 297 230 White Blood Count 3.8 10^3/uL Red Blood Count 3.70 10^6/uL Hemoglobin 11.3 g/dL Hematocrit 33.3 % Mean Corpuscular Volume 90.0 fL Mean Corpuscular Hemoglobin 30.5 pg Mean Corpuscular Hemoglobin Concent 33.9 g/dL Red Cell Distribution Width 14.5 % Platelet Count 137 10^3/uL Mean Platelet Volume 11.5 fL Neutrophils (%) (Auto) 83.5 % Lymphocytes (%) (Auto) 6.6 % Monocytes (%) (Auto) 6.9 % Neutrophils # (Auto) 3.1 10^3/uL Lymphocytes # (Auto) 0.3 10^3/uL Monocytes # (Auto) 0.3 10^3/uL Absolute Immature Granulocyte (auto 0.03 10^3 u/L Differential Total Cells Counted 100 #CELLS Immature Granulocytes % 0.80 % Eosinophils % 1.1 % Basophils % 1.1 % Segmented Neutrophils 69 % Band Neutrophils 5 % Lymphocytes 7 % Monocytes 15 % Basophils # 0.0 10^3/uL Nucleated Red Blood Cells % Atypical Lymphocytes 1 % Other Cell Type 3 Platelet Estimate DECREASED Tear Drop Cells 1+ [place] Cells 1+ Eosinophil Count 0.0 10^3/uL Sodium Level 147 mmol/L Potassium Level 3.2 mmol/L Chloride Level 115.0 mmol/L Carbon Dioxide Level 15.7 mmol/L Anion Gap 19.5 Blood Urea Nitrogen 42 mg/dL Creatinine 0.84 mg/dL Estimated GFR () 107.2 BUN/Creatinine Ratio 50.0 Glucose Level 297 mg/dL Calcium Level 8.4 mg/dL Magnesium Level 2.2 mg/dL Total Bilirubin 0.4 mg/dL Aspartate Amino Transf (AST/SGOT) 7 U/L Alanine Aminotransferase (ALT/SGPT) 13 U/L Alkaline Phosphatase 31 U/L Total Protein 6.0 g/dL Albumin 3.1 g/dL Globulin 2.9 Current Medications Medications (Trade) Dose Ordered Sig/Steff PRN Reason Start Time Stop Time Status Last Admin Albumin Human (Buminate 25%) 100 ml Q6H 12/31/18 15:00 01/30/19 17:59 01/01/19 08:50 Budesonide (Pulmicort) 0.5 mg RTBID 12/30/18 21:00 01/29/19 20:59 01/01/19 07:23 Insulin Human Regular (Humulin R) Give 30 minutes before meal ACHS 12/31/18 21:00 01/30/19 20:59 01/01/19 07:35 Levalbuterol HCl (Xopenex) 0.63 mg RTQ6 12/30/18 21:00 01/29/19 20:59 01/01/19 07:23 Levothyroxine Sodium (Levothyroxine Sodium) 25 mcg HS 12/30/18 21:00 01/29/19 20:59 12/31/18 21:07 Loperamide HCl (Imodium) 2 mg PRN PRN DIARRHEA 12/31/18 13:30 01/30/19 13:29 12/31/18 13:41 Metronidazole 100 ml @ 100 mls/hr Q8H 12/31/18 10:30 01/30/19 10:29 01/01/19 09:56 Ondansetron HCl (Zofran) 4 mg Q4H PRN NAUSEA / VOMITING 12/30/18 21:00 01/29/19 20:59 Potassium Chloride/Dextrose/ Sod Cl 1,000 ml @ 75 mls/hr [id number] 12/31/18 09:00 01/30/19 06:59 01/01/19 02:28 Potassium Chloride (Klor-Con 10) 20 meq DAILY 12/31/18 09:00 01/30/19 08:59 01/01/19 08:51 Sucralfate (Carafate) 1 gm ACHS 12/30/18 21:00 01/29/19 20:59 01/01/19 11:33 Topiramate (Topamax) 50 mg HS 12/31/18 21:00 01/30/19 20:59 12/31/18 21:08 Sepsis Infection Criteria Pres: Suspected Infection LEVEL 1 SEPSIS INFECTION CRITE: ABX Therapy Cardiovascular Evidence: Not Assessed or None Hematologic Evidence: None/Not assessed Hepatic Evidence: None/Not assessed Metabolic Evidence: None/Not assessed Neurological Evidence: None/Not assessed Respiratory Evidence: Need for O2 to keep>90% Renal Evidence: None/Not assessed O2 Sat by Pulse Oximetry: 94 Oxygen Flow Rate: 2.00 Assessment/Plan Assessment/Plan Assessment/Plan 1. Diarrhea/Dehydration/Hypotension: cont IVF, stool/blood/urine cx pending. Cont IV abx. BP improved, hold antihypertensives until volume resuscitation completed. Cont Albumin. 2. Hypokalemia: replete IV/PO. mag level wnl. 3. Hypernatremia: cont HNS with K. Recheck metabolic panel in AM. 4. Metabolic Acidosis: cont IVF, encourage PO intake. 5. Pancytopenia: recheck labs in AM. Patient chronically ill. 6. COPD: cont Nebs, O2 support. If patient worsens, possibly will need IV s teroids. 7. Hyperglycemia/DM: worsened by steroid use. Cont SSI to cover. 8. Hypothyroidism: cont Synthroid 9. Heart Failure with Preserved EF: caution with IVF for volume resuscitation. 10. BUN/Cr: ERIS resolved, GFR good. 2/2 Dehydration and steroid use. Recheck metabolic panel in AM. 11. PPx: Carafgregg, VIVI Brown MD Jan 01, 2019 12:54
[2019-01-01] MEDS: TESSALON PERLE PO PRN (13:28)
--- NOTE | 2019-01-01 13:41 | NUR ---
TRANSFER TO MED/SURG IN BED. NO DISTRESS NOTED. REPORT GIVEN TO ASHLY ASCENCIO. PATIENT ON O2 AT 2L/MIN VIA NASAL CANULA.
--- NOTE | 2019-01-01 17:59 | NUR ---
MEDICATION INSULIN HELD DUE BLOOD SUGAR OF 169 AND Pt REFUSING TO EAT MEALS.
[2019-01-01] MEDS: LEVOTHYROXINE SODIUM PO SCH (21:01)
[2019-01-01] MEDS: TOPAMAX PO SCH (21:01)
[2019-01-01] MEDS: MUCINEX PO SCH (21:01)
[2019-01-02] VITALS (8 sets, daily range): BP systolic 108–131; BP diastolic 61–74
--- NOTE | 2019-01-02 00:15 | NUR ---
UNABLE TO READ TELEMETRY. NOTIFIED GENE Maloney BALANCER TO COME LOOK AT. MOVED TELE PADS AROUND TRYING TO GET BETTER READING. GENE ADVISED AFTER CHECKING OUT THAT IT WAS PACING WITH FREQUENT PVC'S. AND WAS PICKING UP TRASH. PT WAS COUGHING BUT NOT IN DISTRESS.
[2019-01-02] MEDS: FLAGYL 500MG/ 100 ML NS 100 ML IV SCH (01:51)
[2019-01-02] MEDS: D5W-1/2NS/KCL 40MEQ 1,000 ML IV SCH (01:51)
--- NOTE | 2019-01-02 02:30 | NUR ---
PT UNABLE TO COUGH UP PHLEGM , SET UP SUCTION AND TRIED TO SUCTION. GOT SMALL AMOUNT OUT. PT NOT IN DISTRESS
[2019-01-02] MEDS: TESSALON PERLE PO PRN (02:53)
[2019-01-02] MEDS: BUMINATE 25% IV SCH (02:53)
--- NOTE | 2019-01-02 02:53 | NUR ---
TESSALON PARTH GIVEN FOR COUGH.
[2019-01-02] MEDS: XOPENEX IH SCH ×4 (03:12→21:11)
[2019-01-02 05:14] LABS: BASOPHIL # 0.1 10^3/uL (0.0-0.1); EOSINOPHIL % 0.6 % (0.0-5.0); HEMOGLOBIN 10.8 g/dL (13.9-16.3); LYMPHOCYTES # 0.2 10^3/uL (1.0-4.8); LYMPHOCYTES % 12.5 % (24.0-44.0); MEAN CELL HGB 30.9 pg (26-34); MEAN CELL HGB CONCENTRATION 34.7 g/dL (33-37); MEAN CORP VOLUME 89.1 fL (78-100); MONOCYTES # 0.3 10^3/uL (0.3-0.8); MONOCYTES % 14.9 % (5.0-12.0); NEUTROPHIL # 0.9 10^3/uL (1.8-7.7); NEUTROPHILS % 54.1 % (41.0-85.0); RED CELL DISTRIBUTION WIDTH 14.6 % (11.5-14.5)
--- NOTE | 2019-01-02 05:20 | NUR ---
PT GIVEN COFFEE TO DRINK. DENIED NEEDS . COUGHING , BUT NO DISTRESS NOTED. PT STATED HE WAS FINE EXCEPT WISH THE COUGHING WOULD STOP.
[2019-01-02 05:31] LABS: CALCIUM 8.3 mg/dL (8.4-10.5); CARBON DIOXIDE 14.1 mmol/L (20.0-32)
[2019-01-02] MEDS ORDERED: METR250T PO (06:04)
--- NOTE | 2019-01-02 06:50 | NUR ---
REPORT REPORT RECEIVED. ASSUMED CARE OF PATIENT
[2019-01-02 06:51] LABS: WHITE BLOOD CELL 1.7 10^3/uL (4.5-11.0)
--- NOTE | 2019-01-02 06:52 | NUR ---
UPDATE HR 127 O2SAT 76% ON 2LPM VIA NC BP 108/65. PATIENT C/O SOB. TITRATED O2 TO 4LPM. O2SAT 84%. EKG OBTAINED. NOTIFIED RT
--- NOTE | 2019-01-02 07:07 | PCM.EKG ---
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
--- NOTE | 2019-01-02 07:11 | NUR ---
DR JASMYNE MEDLEY NOTIFIED OF PT STATUS, V/S 108/65, HR 127, RESPS 25, TEMP 98.6, O2 SATS 78% ON 2L THEN 85% ON 4L. DR MEDLEY NOTIFIED OF PT C/O OF SHORTNESS OF BREATH, WBC OF 1.7. ORDER RECEIVED FOR LASIX 20MG IV STAT, REPEAT CBC, AND TROPONIN. WILL CONT TO MONITOR. CALL LIGHT WITHIN REACH. BED ALARM ACTIVATED.
[2019-01-02] MEDS ORDERED: LASIX IV STA ×2 (07:16→09:29)
[2019-01-02] MEDS ORDERED: LANOXIN IV STA ×2 (07:16→10:03)
[2019-01-02] MEDS ORDERED: LASIX ONE (07:16)
[2019-01-02] MEDS ORDERED: LANOXIN ONE ×2 (07:19→10:38)
[2019-01-02 07:32] LABS: HEMOGLOBIN 11.1 g/dL (13.9-16.3); MEAN CELL HGB 30.7 pg (26-34); MEAN CELL HGB CONCENTRATION 34.5 g/dL (33-37); MEAN PLATELET VOLUME 11.8 fL (7.8-11.0); RED CELL DISTRIBUTION WIDTH 14.8 % (11.5-14.5)
[2019-01-02 07:36] LABS: WHITE BLOOD CELL 1.9 10^3/uL (4.5-11.0)
[2019-01-02] MEDS: HUMULIN R SQ SCH ×4 (07:57→20:52)
[2019-01-02] MEDS: CARAFATE PO SCH ×4 (07:57→20:54)
[2019-01-02] MEDS: MUCINEX PO SCH ×2 (08:29→20:54)
[2019-01-02] MEDS: KLOR-CON 10 PO SCH (08:29)
[2019-01-02] MEDS: PULMICORT IH SCH ×2 (08:49→21:11)
[2019-01-02] MEDS ORDERED: FLAGYL PO SCH (09:00)
--- NOTE | 2019-01-02 09:56 | DIREP ---
PROCEDURE:CHEST 2 VIEWS COMPARISON:[facility], CR, XRAY CHEST SINGLE VW, 12/30/2018, 05:54 PM. INDICATIONS:SOB FINDINGS: LUNGS/PLEURA:Low lung volumes. Diffuse interstitial prominence. Bilateral lower lobe infiltrates, left greater than right. Possible trace pleural effusions. No pneumothorax. VASCULATURE:Prominent pulmonary vasculature. Calcified aortic arch. CARDIAC:Heart size within normal limits. Left chest wall dual lead pacemaker MEDIASTINUM:Normal. No visible mass or adenopathy. BONES:Degenerative change without evidence of acute osseus abnormality. OTHER:Negative. CONCLUSION: 1. Interval development of pulmonary vascular congestion and bilateral lower lobe infiltrates. While findings likely represent sequela of CHF/fluid overload, underlying pneumonia cannot be excluded. Clinical and laboratory correlation is recommended. Dictated by: Gagan Dick MD on 01/02/2019 at 09:58 AM
[2019-01-02 10:02] LABS: ABG PCO2 23.7 mmHg (35.0-45.0); ABG PH 7.396 (7.350-7.450); BE(B) -8.9 mmol/L (-2.0-2.0); HCO3act 14.2 mmol/L (22.0-26.0); pO2 56.5 mmHg (80.0-100.0)
[2019-01-02] MEDS ORDERED: SOLU-MEDROL IV STA (10:03)
[2019-01-02] MEDS ORDERED: MEROPENEM 500 MG in NS 100ML 100 ML IV STA (10:03)
[2019-01-02] MEDS ORDERED: NS 100ML 100 ML IV ONE (10:25)
[2019-01-02] MEDS: NS 1000ML/KCL 20MEQ 1,000 ML IV SCH ×2 (10:30→22:41)
--- NOTE | 2019-01-02 10:32 | NUR ---
DISCHARGE PLAN CM VISITED WITH PATIENT CONCERNING PATIENTS DISCHARGE PLAN AND NEED. PATIENT STATED HE LIVES @ HOME ALONE AND HAS A GREAT SUPPORT SYSTEM THROUGH A NEIGHBOR AND DAUGHTER THAT CHECK ON HIM DAILY. PATIENT IS INDEPENDENT ON ADLS. HE STATED HE DOES US A CAN FOR ASSISTANCE NEEDED AND IS STILL ABLE TO DRIVE. CM EDUCATED PATIENT ON HH AND SNF. PATIENT DENIES NEEDS @ THIS TIME. DISCHARGE GOAL IS FOR PATIENT IS TO RETURN BACK HOME TO ROUTINE SELF CARE UPON DISCHARGE. NO FURTHER CM OR DISCHARGE NEEDS KNOWN @ THIS TIME.
[2019-01-02 11:08] LABS: BAND NEUTROPHILS 3 % (2-6); BASOPHIL 2 % (0-2); LYMPHOCYTE 12 % (25-36); MONOCYTE 15 % (3-9); SEGMENTED NEUTROPHILS 53 % (31-76)
[2019-01-02 11:25] LABS: ABG PCO2 26.8 mmHg (35.0-45.0); ABG PH 7.381 (7.350-7.450); BE(B) -8.1 mmol/L (-2.0-2.0); HCO3act 15.5 mmol/L (22.0-26.0); pO2 57.2 mmHg (80.0-100.0)
[2019-01-02] MEDS: SOLU-MEDROL IV SCH ×2 (14:47→21:57)
[2019-01-02] MEDS: MEROPENEM 500 MG in NS 100ML 100 ML IV SCH ×2 (14:47→21:58)
--- NOTE | 2019-01-02 17:30 | NUR ---
UPDATE PATIENT IN BED SLEEPING WITH FAMILY AT BEDSIDE. RESPIRATIONS ELEVATED AT 20. NO COMPLAINTS OF SOB. HOB ELEVATED FOR COMFORT
--- NOTE | 2019-01-02 18:01 | NUR ---
DR MEDLEY NOTIFIED DR MEDLEY THAT TELEMETRY READING RANGES FROM 70S TO NO HIGHER THAN 103 WITH OCCASIONAL PVCS AND RHYTHM DIFFICULT TO READ DUE TO PACEMAKER. NO NEW ORDERS RECEIVED. STATES "HE IS GOOD. PACEMAKER IS PROGRAMMED TO NOT LET HR GO ABOVE 103" WILL CONTINUE TO MONITOR TELEMETRY
--- NOTE | 2019-01-02 20:43 | NUR ---
DR. MEDLEY CALLED AND NOTIFIED OF PT PLATELET COUNT OF 67,000. DR. MEDLEY STATED TO GO AHEAD AND GIVE THE LOVENOX AND HE SAID HE HAD SPOKEN TO THE PHARMACY ABOUT IT. INFORMED PHYSICIAN THAT PT IS RUNNING AFIB ON TELE. HE SAID HE IS AWARE.
[2019-01-02] MEDS: LEVOTHYROXINE SODIUM PO SCH (20:53)
[2019-01-02] MEDS: TOPAMAX PO SCH (20:53)
[2019-01-02] MEDS ORDERED: LOVENOX SQ SCH ×2 (21:00)
--- NOTE | 2019-01-03 01:23 | PNH ---
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 on 01/01/2019 has gone into atrial fibrillation with a rapid ventricular response and was having a ventricular rate of 120 at max track rate with increased sensitivity to flutter and fibrillation waves, and so he was going in the max track rate of 120. He is in new-onset atrial fibrillation. On interrogation of the device, it is noted that he was in atrial fibrillation and his rate was increased. He was extremely short of breath. OBJECTIVE: VITAL SIGNS: Showed that his blood pressure was 109/75, saturation of 92%. NECK: He had no jugular venous distention. LUNGS: Coarse rales bilaterally. Significant change in his general condition was noted. LABORATORY DATA: White count was 1.9, leukopenic with thrombocytopenia. He has been on only Flagyl. His platelet count is 67,000 and hemoglobin is 11. His blood gas showed a pH of 7.39 with a pCO2 of 23 and a pO2 of 56 with a bicarbonate of 14, suggestive of metabolic acidosis and respiratory alkalosis. His sugar was acceptable. His CO2 was only 14 and anion gap was 20 which has increased. BUN has improved to 30, creatinine was 0.75, improvement, acute kidney injury. Chest x-ray showed a significant change with pulmonary vascular congestion with pulmonary edema and bilateral lower lobe infiltrates consistent with possibility of superimposed pneumonia. IV steroids, Lasix, digoxin 0.25 mg x 2 IV dose for rapid atrial fibrillation along with the initiation of meropenem in a neutropenic patient was done, and over the course of the next 2 hours, his condition improved. His device was interrogated. P-wave sensitivity was decreased from 0.25 to 0.5 and he was put in DDI mode which results in less P tracking. He will go into VVI. The upper rate was cut down to 100. His overall condition improved. IMPRESSION: Bilateral pneumonia, volume overload, congestive heart failure, new-onset atrial flutter/fibrillation with rapid ventricular response with paced rhythm, diarrhea, leukopenia, thrombocytopenia. PLAN: At this time, see orders. Management continued. His sensorium was also decreased consistent with probably metabolic encephalopathy. Continue same optimized medical therapy. Laxmichand MD Aj DR: ANEESH/parminder JOB# [id number]
[2019-01-03] MEDS: XOPENEX IH SCH ×2 (02:46→09:32)
--- NOTE | 2019-01-03 03:12 | NUR ---
INCREASED RESPIRATORY RATE REPORTED TO GERALD HUIZARN
[2019-01-03 03:29] VITALS: BP 130/65
--- NOTE | 2019-01-03 03:34 | NUR ---
DR. MEDLEY NOTIFIED PT LUNGS SOUNDING WET AND RESPIRATORY RATE 31. ORDER RECEIVED TO GIVE LASIX 20MG IV NOW AND LOWER IV FLUIDS TO 30CC/HR.
[2019-01-03] MEDS ORDERED: LASIX IV STA (03:36)
[2019-01-03 04:50] LABS: BASOPHIL % 2.9 % (0.0-0.2); LYMPHOCYTES # 0.2 10^3/uL (1.0-4.8); LYMPHOCYTES % 21.6 % (24.0-44.0); MEAN CELL HGB 30.7 pg (26-34); MEAN CELL HGB CONCENTRATION 35.4 g/dL (33-37); MEAN CORP VOLUME 86.7 fL (78-100); MONOCYTES # 0.1 10^3/uL (0.3-0.8); MONOCYTES % 11.8 % (5.0-12.0); NEUTROPHIL # 0.3 10^3/uL (1.8-7.7); NEUTROPHILS % 33.3 % (41.0-85.0); NUCLEATED RED BLOOD CELLS 0 % (0-0); PLATELET COUNT 52 10^3/uL (150-400); RED CELL DISTRIBUTION WIDTH 14.4 % (11.5-14.5)
[2019-01-03 04:53] LABS: CALCIUM 8.7 mg/dL (8.4-10.5); CARBON DIOXIDE 16.2 mmol/L (20.0-32)
--- NOTE | 2019-01-03 05:29 | NUR ---
DR. MEDLEY NOTIFIED PT WBC 1.0. STATED HE WOULD PUT IN ORDER WHEN HE GOT HERE.
[2019-01-03] MEDS: SOLU-MEDROL IV SCH (05:48)
[2019-01-03] MEDS: MEROPENEM 500 MG in NS 100ML 100 ML IV SCH (05:48)
--- NOTE | 2019-01-03 06:30 | NUR ---
PT PLACED ON NEUTROPENIC PRECAUTIONS.
[2019-01-03 07:02] LABS: BAND NEUTROPHILS 3 % (2-6); LYMPHOCYTE 18 % (25-36); MONOCYTE 5 % (3-9); SEGMENTED NEUTROPHILS 74 % (31-76)
[2019-01-03 07:03] LABS: ANISOCYTOSIS 1+ (NEGATIVE); BURR CELLS 1+ (NEGATIVE)
[2019-01-03 08:00] VITALS: BP 130/71
--- NOTE | 2019-01-03 08:31 | PCM.EKG ---
[facility] Test Date: 2019-01-03 Test Time: 08:29:20 Pat Name: LEE ANN STERN Department: Room: 341 A Gender: M Rn Hematology: RT : 1940 Requested By: MONCHO MEDLEY Order Number: [id number] Reading MD: Measurements Intervals [place] Rate: 91 P: 36 WV: 268 QRS: 13 QRSD: 84 T: -68 QT: 434 QTc: 533 Interpretive Statements Demand pacemaker, interpretation is based on intrinsic rhythm Sinus rhythm with 1st degree AV block with occasional premature ventricular complexes Marked T wave abnormality, consider anterolateral ischemia Prolonged QT Abnormal ECG Compared to ECG 04/19/2017 10:04:46 First degree AV block now present T-wave abnormality now present Possible ischemia now present Prolonged QT interval now present Please click the below link to view image of tracing.
[2019-01-03] MEDS ORDERED: AMIO200T4 PO (08:42)
[2019-01-03] MEDS ORDERED: GUAI600T31 PO (08:42)
[2019-01-03] MEDS ORDERED: BUDE0.5A3 IH (08:42)
[2019-01-03] MEDS ORDERED: DIGO125T81 PO (08:42)
[2019-01-03 08:50] LABS: ABG PCO2 23.2 mmHg (35.0-45.0); ABG PH 7.486 (7.350-7.450); BE(B) -4.7 mmol/L (-2.0-2.0); HCO3act 17.1 mmol/L (22.0-26.0); pO2 70.6 mmHg (80.0-100.0)
[2019-01-03] MEDS: CARAFATE PO SCH (08:56)
[2019-01-03] MEDS: HUMULIN R SQ SCH (08:56)
[2019-01-03] MEDS ORDERED: CORDARONE PO SCH (09:00)
[2019-01-03] MEDS ORDERED: LANOXIN PO SCH (09:00)
[2019-01-03] MEDS ORDERED: GRANIX SQ SCH (09:00)
[2019-01-03] MEDS ORDERED: ELIQUIS PO SCH (09:00)
[2019-01-03] MEDS: MUCINEX PO SCH (09:05)
[2019-01-03] MEDS: KLOR-CON 10 PO SCH (09:06)
[2019-01-03] MEDS: PULMICORT IH SCH (09:32)
[2019-01-03 11:10] VITALS: BP 130/71
--- NOTE | 2019-01-03 11:15 | NUR ---
TRANSFER. PT TRANSFERRED TO [facility] VIA EMS. PT OFF UNIT VIA STRETCHER ACCOMPANIED BY EMS STAFF. NO S/S OF DISTRESS NOTED. RELINQUISHED CARE AT THIS TIME.
--- NOTE | 2019-01-03 11:33 | DIREP ---
PROCEDURE:CHEST 2 VIEWS COMPARISON:[facility], CR, XRAY CHEST 2 VWS, 01/02/2019, 09:20 AM. [facility], CR, XRAY CHEST SINGLE VW, 12/30/2018, 05:54 PM. INDICATIONS:pneumonia,chf FINDINGS: LUNGS/PLEURA:Improved aeration and expansion of the bilateral lung tilley with residual left lower lobe patchy opacity. Chronic interstitial changes. No pleural effusion or pneumothorax. VASCULATURE:Unremarkable pulmonary vasculature. Calcified aortic arch. CARDIAC:Heart size within normal limits. Left chest wall dual lead pacemaker. MEDIASTINUM:Normal. No visible mass or adenopathy. BONES:Degenerative change without evidence of acute osseus abnormality. OTHER:Negative. CONCLUSION: 1. Improved aeration of the bilateral lung tilley, likely represent decreased degree of CHF/fluid overload. 2. Small residual left lower lobe patchy opacity. Dictated by: Gagan Dick MD on 01/03/2019 at 11:30 AM
--- NOTE | 2019-01-03 12:07 | NUR ---
REPORT CALLED REPORT TO PRADEEP DORANTES RN AT [facility]
--- NOTE | 2019-01-03 21:22 | DSH ---
DATE OF DISCHARGE: 01/03/2019 FINAL DIAGNOSES: Syncope, hypovolemia, hypotension, systemic inflammatory response syndrome, metabolic acidosis with compensatory respiratory alkalosis, hyperkalemic acidosis, acute kidney injury reverse, severe malnutrition, bilateral pneumonia, acute on chronic diastolic heart failure, acute on chronic systolic heart failure, new onset atrial fibrillation with rapid ventricular response, leukopenia, neutropenia, thrombocytopenia, rule out immune suppression, rule out preleukemia. Please refer to my history and physical to the point of my impression. HOSPITAL COURSE: The patient is a 78-year-old white male with underlying history of COPD and has hypertension and had a complete heart block, underwent pacer 2 years ago, had non-flow obstructive atherosclerotic coronary artery disease in multiple vessels, but no flow obstruction, intact LV systolic function. He presented with a syncopal episode, actually had 10-day history of diarrhea and the diarrhea was not associated with any blood, vomiting, developed severe dehydration, blacked out, potassium of 2.2, magnesium 1.6, BUN was 60, creatinine of 1.52 and he had acute kidney injury and he was given IV fluids followed by transfer to ICU and was started on Levophed. His biochemical data improve with correction of hypokalemia and hypomagnesemia and acute kidney injury with fairly normal electrolytes, creatinine and his diarrhea was improved with empiric Flagyl. He came in slightly neutropenic, but on 01/02/2019 he had decompensation and looking back at the telemetry strips on 01/01/2019 at 6:00 p.m., he had gone into atrial fibrillation with rapid ventricular response with tracking of the flutter and fibrillation waves, on interrogation of the device, it was noted that his atrial sensitivity was 0.25 milliseconds, which was cut down to 0.5 milliseconds and he was put in DDI mode and the upper rate limit was cut down to 100. He was given digoxin 0.25 mg x 2 and his atrial fibrillation, rate control was achieved, but he did have volume overload with acute pulmonary edema and IV Lasix was given and subsequently he was treated for pneumonia with bilateral infiltration and had become leukopenic with a white count of 1.9, platelet count was 60,000. Whether that was related to metronidazole was unclear, but it was stopped. He was started on meropenem 500 mg q.8 hours along with IV steroids and nebulizer treatments. His diarrhea was better and on 01/03/2019, his white count came down to 1000, he was neutropenic and clinically he had improved. His pneumonia and congestive heart failure had improved. He was given albumin for the last 3 days and his hypoproteinemia is also improved, but because of the fact that he was leukopenic, he was given Granix 300 mcg subcutaneously for stimulating his white cell colonies and I felt that he needs a soc analyst/oncologist and corporate real estate specialist, although his pneumonia is improved and his alveolar arterial gradient is better. He was transferred to [facility] under care of ____ and the soc analyst for full evaluation of his bone marrow and he was continued on meropenem 500 mg IV q. 8 hours along with Solu-Medrol 60 mg IV q. 8 hours and he was started on amiodarone 200 mg twice a day, Pulmicort 0.5 mg nebulizer twice a day and digoxin 0.125 mg daily, Mucinex 600 mg twice a day and aspirin 81 mg once a day, vitamin D3 2000 units daily, Breo Ellipta 1 puff daily and to continuing Xopenex 0.63 mg inhalation therapy 4 times a day, Crestor 10 mg once a day, topiramate 50 mg once a day. He is on Rapaflo 8 mg once a day, omeprazole 20 mg once a day and he will be taken in an ambulance to [facility] ICU. Dayna Rocha MD DR: ANEESH/parminder JOB# [id number]
== END 2019-01-03 11:15 | disposition short-term general hospital (02) | DRG 682 ==
LOC: ER 18:23 → EDBD 18:23 → ICU 21:01 → MS 12-31 16:00 → EDPENDDISDT 01-02 21:27 → EDPENDDISTM 01-03 11:10 → EDPENDDISDT 01-03 11:10
PROVIDERS: ADMIT Specialist; ATTEND Specialist
PROC: 5A12012 Performance of Cardiac Output, Single, Manual (ICD-10-PCS; 2018-12-30)
PROC: 4B02XTZ Measurement of Cardiac Defibrillator, External Approach (ICD-10-PCS; principal; 2019-01-02)
DX: N17.9 Acute kidney failure, unspecified (principal); E43 Unspecified severe protein-calorie malnutrition; I50.43 Acute on chronic combined systolic (congestive) and diastolic (congestive) heart failure; J18.9 Pneumonia, unspecified organism; R57.1 Hypovolemic shock; D61.818 Other pancytopenia; E87.4 Mixed disorder of acid-base balance; I48.92 Unspecified atrial flutter; J44.0 Chronic obstructive pulmonary disease with (acute) lower respiratory infection; R65.10 Systemic inflammatory response syndrome (SIRS) of non-infectious origin without acute organ dysfunction; I11.0 Hypertensive heart disease with heart failure; E03.9 Hypothyroidism, unspecified; E11.65 Type 2 diabetes mellitus with hyperglycemia; E83.42 Hypomagnesemia; E86.0 Dehydration; E87.5 Hyperkalemia; S20.319A Abrasion of unspecified front wall of thorax, initial encounter; X58.XXXA Exposure to other specified factors, initial encounter; E87.6 Hypokalemia; I25.10 Atherosclerotic heart disease of native coronary artery without angina pectoris; I48.91 Unspecified atrial fibrillation; T38.0X5A Adverse effect of glucocorticoids and synthetic analogues, initial encounter; E77.8 Other disorders of glycoprotein metabolism; I95.9 Hypotension, unspecified; Z79.51 Long term (current) use of inhaled steroids; Z79.82 Long term (current) use of aspirin; Z79.899 Other long term (current) drug therapy; Z68.20 Body mass index [BMI] 20.0-20.9, adult; Z95.810 Presence of automatic (implantable) cardiac defibrillator; Y93.89 Activity, other specified; Y92.89 Other specified places as the place of occurrence of the external cause; Y99.8 Other external cause status; Z83.3 Family history of diabetes mellitus; Z82.49 Family history of ischemic heart disease and other diseases of the circulatory system; Z83.6 Family history of other diseases of the respiratory system
CPT/HCPCS: 36415; 36600; 70450; 71045; 71046; 80053; 81000; 82272; 82550; 82803; 82948; 83605; 83630; 83735; 83880; 84484; 85007; 85025; 85027; 85379; 85610; 86677; 87040; 87045; 87077; 87086; 87186; 87230; 87338; 93005; 94640; 99285; C9113; G0378; J1160; J1447; J1650; J1815; J1940; J2930; J3475; J3490; J7030; J7040; J7050; J7627; P9047; J3480

== ENCOUNTER 2019-01-25 20:51 | Emergency (ER) | payer MEDICARE ==
[~2019-01-25] VITALS: Ht 182.9 cm; Wt 59.0 kg
[~2019-01-25 20:51] MED LIST changes: +AMIO200T4 PO; +BUDE0.5A3 IH; +DIGO125T81 PO; +GUAI600T31 PO; +METR250T PO; -SOLU-MEDROL IV STA
[2019-01-25 20:52] VITALS: BP 99/61
--- NOTE | 2019-01-25 21:01 | PCM.EKG ---
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
--- NOTE | 2019-01-25 21:33 | DIREP ---
PROCEDURE:CHEST 1 VIEW COMPARISON:[facility], CR, XRAY CHEST 2 VWS, 01/03/2019, 09:23 AM. INDICATIONS:Hypotension FINDINGS: LUNGS/PLEURA:Increasing bibasilar opacities. No definite pleural effusion. VASCULATURE:Normal. Unremarkable pulmonary vasculature. CARDIAC:Normal. No cardiac silhouette abnormality or cardiomegaly. MEDIASTINUM:Atherosclerotic aorta with no visible aneurysm. BONES:Mild degenerative disc disease and spondylosis without visible acute abnormalities. OTHER:Left subclavian 2 lead pacemaker again seen. CONCLUSION:Increasing bibasilar opacities noted medially. Continued surveillance recommended. Dictated by: Wyatt Holley M.D. on 01/25/2019 at 09:30 PM
[2019-01-25 21:34] LABS: BASOPHIL # 0.1 10^3/uL (0.0-0.1); BASOPHIL % 0.6 % (0.0-0.2); EOSINOPHIL % 0.4 % (0.0-5.0); HEMOGLOBIN 9.3 g/dL (13.9-16.3); LYMPHOCYTES # 1.8 10^3/uL (1.0-4.8); LYMPHOCYTES % 16.6 % (24.0-44.0); MEAN CELL HGB 29.6 pg (26-34); MEAN CORP VOLUME 95.5 fL (78-100); MEAN PLATELET VOLUME 9.2 fL (7.8-11.0); MONOCYTES # 1.2 10^3/uL (0.3-0.8); MONOCYTES % 11.3 % (5.0-12.0); NEUTROPHIL # 7.4 10^3/uL (1.8-7.7); NEUTROPHILS % 69.9 % (41.0-85.0); RED CELL DISTRIBUTION WIDTH 16.2 % (11.5-14.5); WHITE BLOOD CELL 10.6 10^3/uL (4.5-11.0)
[2019-01-25 21:40] VITALS: BP 99/61
[2019-01-25 21:52] VITALS: BP 94/61
[2019-01-25 21:57] LABS: ALANINE AMINOTRANSFERASE(ML) 8 U/L (12-78); ALKALINE PHOSPHATASE 105 U/L (50-136); ASPARTATE AMINO TRANSFERASE 12 U/L (0-35); CALCIUM 7.9 mg/dL (8.4-10.5); CARBON DIOXIDE 27.5 mmol/L (20.0-32); GLUCOSE 102 mg/dL (70-110)
[2019-01-25 22:06] VITALS: BP 90/58
[2019-01-25 22:24] LABS: ABG PCO2 33.9 mmHg (35.0-45.0); ABG PH 7.446 (7.350-7.450); BE(B) -0.9 mmol/L (-2.0-2.0); HCO3act 22.8 mmol/L (22.0-26.0); pO2 89.7 mmHg (80.0-100.0)
--- NOTE | 2019-01-25 22:24 | ER.PDOC ---
General Chief Complaint: General Complaint Stated Complaint: Hypotension TRAVEL OUT OF US: No Time seen by MD: 22:22 Source: patient Exam Limitations: no limitations History of Present Illness Initial Comments Low blood pressure this evening, no other complaints. Patient discharged from [facility] 6 days ago. Timing/Duration: 1-3 hours Severity: moderate Associated Symptoms: denies symptoms Allergies: Coded Allergies: No Known Allergies (Unverified , 04/13/17) Home Meds Active Scripts Guaifenesin (MUCINEX) 600 Mg Tablet.er, 600 MG PO BID for 30 Days Prov:MONCHO ROCHA MD 01/03/19 Budesonide (PULMICORT) 0.5 Mg/2 Ml Ampul.neb, 0.5 MG IH RTBID for 7 Days, #14 Prov:MONCHO ROCHA MD 01/03/19 Digoxin (LANOXIN) 125 Mcg Tablet, 125 MCG PO DAILY for 30 Days, #30 TABLET Prov:MONCHO ROCHA MD 01/03/19 Amiodarone Hcl (CORDARONE) 200 Mg Tablet, 200 MG PO BID for 30 Days, #60 TABLET Prov:MONCHO ROCHA MD 01/03/19 Aspirin (ASPIRIN) 81 Mg Tab.chew, 81 MG PO daily for 30 Days Prov:MONCHO ROCHA MD 04/20/17 Reported Medications Aspirin (ASPIRIN) 81 Mg Tab.chew, 1 TAB PO DAILY, #30 TAB 3 Refills 04/14/17 Fluticasone/Vilanterol (Breo Ellipta 100-25 Mcg INH) 1 Each Aer.pow.ba, 1 EACH IH DAILY 04/14/17 Rosuvastatin 10MG (CRESTOR 10MG) 10 Mg Tablet, 1 TAB PO DAILY, #30 TAB 5 Refills 04/14/17 Silodosin (RAPAFLO) 8 Mg Capsule, 1 CAP PO DAILY, #30 CAP 5 Refills 04/13/17 Finasteride (FINASTERIDE) 5 Mg Tablet, 1 TAB PO DAILY, #30 TAB 11 Refills 04/13/17 Cholecalciferol (Vitamin D3) (VITAMIN D) 2,000 Unit Capsule, 1 CAP PO HS, #90 CAP 3 Refills 12/10/14 Topiramate (TOPIRAMATE) 50 Mg Tablet, 1 TAB PO HS, #60 TAB 12/10/14 Levothyroxine Sodium (LEVOTHYROXINE SODIUM) 25 Mcg Tablet, 1 TAB PO HS, #90 TAB 3 Refills 12/10/14 Omeprazole (OMEPRAZOLE) 20 Mg Capsule.dr, 1 CAP PO DAILY, #90 CAP 3 Refills 12/10/14 Past Medical History Medical History: COPD, hypertension Surgical History: no surgical history Social History Smoking: non-smoker Alcohol Use: none Drug Use: none Review of Systems Constitutional: no symptoms reported Respiratory: no symptoms reported Cardiovascular: no symptoms reported Gastrointestinal: no symptoms reported Genitourinary: no symptoms reported All Other Systems: Reviewed and Negative Physical Exam General Appearance: No Apparent Distress, WD/WN, Cachetic Neck: Non-Tender Respiratory: chest non-tender, lungs clear, normal breath sounds, no respiratory distress CVS: reg rate & rhythm, no murmur, no gallop, pulses nml, nml capillary refill Gastrointestinal: Normal Bowel Sounds, No Organomegaly, No Pulsatile Mass, Non Tender Back: Normal Inspection Extremities: Normal Range of Motion 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 (01/25/19 20:59) Xr Chest 1v (01/25/19 20:59) Ekg-Routine (01/25/19 20:59) Lactic Acid(Rt) (01/25/19 21:58) Blood Culture (01/25/19 21:58) Arterial Blood Gas (01/25/19 22:14) Urinalysis (01/25/19 22:24) Vital Signs Date Time Temp Pulse Resp B/P (MAP) Pulse Ox O2 Delivery O2 Flow Rate FiO2 01/25/19 22:41 78 16 98/62 (74) 96 Nasal Canula 2.00 01/25/19 22:06 74 16 90/58 (69) 97 Nasal Canula 2.00 01/25/19 21:52 76 16 94/61 (72) 98 Nasal Canula 2.00 01/25/19 21:36 98.6 80 16 01/25/19 21:36 98.6 80 16 94 Nasal Canula 01/25/19 20:52 98.6 81 16 99/61 (74) 94 Nasal Canula 2.00 01/03/19 11:10 210.4 111 01/03/19 09:05 91 Laboratory Tests Test 01/25/19 21:29 01/25/19 22:15 White Blood Count 10.6 10^3/uL (4.5-11.0) Red Blood Count 3.14 10^6/uL (4.50-5.90) L Hemoglobin 9.3 g/dL (13.9-16.3) #L Hematocrit 30.0 % (37.0-53.0) L Mean Corpuscular Volume 95.5 fL (78-100) Mean Corpuscular Hemoglobin 29.6 pg (26-34) Mean Corpuscular Hemoglobin Concent 31.0 g/dL (33-37) L Red Cell Distribution Width 16.2 % (11.5-14.5) H Platelet Count 516 10^3/uL (150-400) H Mean Platelet Volume 9.2 fL (7.8-11.0) Neutrophils (%) (Auto) 69.9 % (41.0-85.0) Lymphocytes (%) (Auto) 16.6 % (24.0-44.0) L Monocytes (%) (Auto) 11.3 % (5.0-12.0) Neutrophils # (Auto) 7.4 10^3/uL (1.8-7.7) Lymphocytes # (Auto) 1.8 10^3/uL (1.0-4.8) Monocytes # (Auto) 1.2 10^3/uL (0.3-0.8) H Absolute Immature Granulocyte (auto 0.13 10^3 u/L (0-2) Immature Granulocytes % 1.20 % (0.00-0.50) H Eosinophils % 0.4 % (0.0-5.0) Basophils % 0.6 % (0.0-0.2) H Basophils # 0.1 10^3/uL (0.0-0.1) Eosinophil Count 0.0 10^3/uL (0.0-0.2) Prothrombin Time 10.6 SEC (9.4-11.5) Prothrombin Time INR (Non-Therap) 1.0 Activated Partial Thromboplast Time 30.1 SEC (24.67-30.72) Sodium Level 139 mmol/L (132-145) # Potassium Level 4.3 mmol/L (3.6-5.2) Chloride Level 103.0 mmol/L (96-109) Carbon Dioxide Level 27.5 mmol/L (20.0-32) Anion Gap 12.8 Blood Urea Nitrogen 24 mg/dL (7-18) H Creatinine 1.10 mg/dL (0.59-1.40) Estimated GFR () 78.5 (>/=60) BUN/Creatinine Ratio 21.0 Glucose Level 102 mg/dL (70-110) Calcium Level 7.9 mg/dL (8.4-10.5) L Total Bilirubin 0.3 mg/dL (0.2-1.0) Aspartate Amino Transferase (AST) 12 U/L (0-35) Alanine Aminotransferase (ALT) 8 U/L (12-78) L Alkaline Phosphatase 105 U/L (50-136) Total Creatine Kinase 77 U/L (39-308) Troponin I < 0.02 ng/mL (0.00-0.05) Total Protein 5.9 g/dL (6.4-8.2) L Albumin 1.5 g/dL (3.4-5.0) L Globulin 4.4 Blood Gas Sample Site RT BRACIAL ARTERY Blood pH 7.446 (7.350-7.450) Blood Gas PCO2 33.9 mmHg (35.0-45.0) L Blood Gas PO2 89.7 mmHg (80.0-100.0) Blood Gas HCO3 22.8 mmol/L (22.0-26.0) Blood Gas Base Excess -0.9 mmol/L (-2.0-2.0) Aly Test N/A Arterial Blood Oxygen Saturation 95.5 % (94.0-97.00) Deoxyhemoglobin 4.4 % (0.0-5.0) Carboxyhemoglobin 0.7 % (0.0-3.9) Methemoglobin 0.6 % (0.00-5.0) Total Hemoglobin 8.8 % (12.0-17.8) L Total Oxygen Concentration 11.8 % (13.5-17.5) L Lactic Acid (Blood Gas) 0.8 mmol/1 (0.50-2.0) Oxygen Delivery Method NASAL CANNULA FiO2 28 % (20-101) Bicarbonate 23.9 mmol/L (23-27) Progress Progress Dr. Rocha looked at the chart and told me that patient [facility]. He takes a bunch of medications including prostate medications so he runs a low blood pressure. His labs are unremarkable and he feels good. His albumin also runs low. He received 1L NS. Departure Time of Disposition: 22:58 Disposition: 01 HOME, SELF-CARE Impression: Primary Impression: Hypotension due to drugs Condition: Improved Referrals: DEJUAN LEYVA WOOD POLE TREATER (PCP) PRIMARY CARE PROVIDER Additional Instructions: F/U with your PCP in 1-2 days Duration or Time Spent with Pa: 60 mins GERMAINE RAYMOND MD Jan 25, 2019 22:23
[2019-01-25 22:41] VITALS: BP 98/62
--- NOTE | 2019-01-25 23:20 | NUR ---
Status: [facility] notified of pt needing to be transported back to [place].
--- NOTE | 2019-01-25 23:42 | NUR ---
[facility] This nurse called to get a ETA on picking up patient. Nurse from [facility] states that the transport van should be on their way now.
[2019-01-25 23:43] VITALS: BP 96/59
[2019-01-26 00:09] VITALS: BP 101/57
[2019-01-27] MEDS ORDERED: DICL75TA2 PO (10:53)
[2019-01-27] MEDS ORDERED: MIRT15TA4 PO (10:53)
[2019-01-27] MEDS ORDERED: AMLO10TA8 PO (10:53)
[2019-01-27] MEDS ORDERED: LOSA100T14 PO (10:53)
[2019-01-27] MEDS ORDERED: ATOR20TA PO (10:53)
[2019-01-27] MEDS ORDERED: FURO40TA4 PO (10:53)
[2019-01-27] MEDS ORDERED: TAMS-14 PO (10:53)
[2019-01-27] MEDS ORDERED: METO-236 PO (10:53)
[2019-01-27] MEDS ORDERED: TOPI50TA8 PO (10:53)
== END 2019-01-26 00:04 | disposition home or self-care (01) ==
LOC: EDBD 20:51 → ER 20:51
DX: I95.2 Hypotension due to drugs (principal); J44.9 Chronic obstructive pulmonary disease, unspecified; I10 Essential (primary) hypertension; R79.1 Abnormal coagulation profile; Z79.899 Other long term (current) drug therapy; Z79.82 Long term (current) use of aspirin
CPT/HCPCS: 36415; 36600; 71045; 80053; 82550; 82803; 84484; 85025; 85610; 85730; 87040; 93005; 99284

== ENCOUNTER 2019-01-26 16:28 | Observation (INO) | payer MEDICARE ==
--- NOTE | 2019-01-19 16:47 | NUR ---
DISCHARGE UPDATE RECEIVED A CALL AT HOME FROM STEPHEN BELL FROM [facility] THAT GAVI IS REQUESTING THERAPY NOTES ON PATIENT.
[2019-01-26] VITALS (23 sets, daily range): BP systolic 84–120; BP diastolic 41–67
[~2019-01-26] VITALS: Ht 167.6 cm; Wt 49.9 kg
[2019-01-26] MEDS ORDERED: NS 1000ML 1,000 ML IV ONE (17:00)
[2019-01-26 17:20] LABS: ABG PCO2 35.9 mmHg (35.0-45.0); ABG PH 7.412 (7.350-7.450); BE(B) -1.9 mmol/L (-2.0-2.0); HCO3act 22.3 mmol/L (22.0-26.0); pO2 94.6 mmHg (80.0-100.0)
[2019-01-26 17:24] LABS: BASOPHIL % 0.4 % (0.0-0.2); EOSINOPHIL # 0.1 10^3/uL (0.0-0.2); EOSINOPHIL % 0.5 % (0.0-5.0); HEMOGLOBIN 7.6 g/dL (13.9-16.3); LYMPHOCYTES # 1.4 10^3/uL (1.0-4.8); LYMPHOCYTES % 13.3 % (24.0-44.0); MEAN CELL HGB 30.2 pg (26-34); MEAN CELL HGB CONCENTRATION 31.9 g/dL (33-37); MEAN CORP VOLUME 94.4 fL (78-100); MEAN PLATELET VOLUME 9.3 fL (7.8-11.0); MONOCYTES # 1.1 10^3/uL (0.3-0.8); MONOCYTES % 9.8 % (5.0-12.0); NEUTROPHILS % 74.7 % (41.0-85.0); RETICULOCYTE COUNT 2.85 % (0.88-2.37); WHITE BLOOD CELL 10.7 10^3/uL (4.5-11.0)
[2019-01-26] MEDS: ROCEPHIN 1,000 MG in NS 100ML 100 ML IV SCH (17:30)
[2019-01-26] MEDS: NS 1000ML/KCL 20MEQ 1,000 ML IV SCH (17:30)
[2019-01-26 17:57] LABS: ALKALINE PHOSPHATASE 100 U/L (50-136); ASPARTATE AMINO TRANSFERASE 11 U/L (0-35); CALCIUM 7.9 mg/dL (8.4-10.5); GLUCOSE 108 mg/dL (70-110)
[2019-01-26] MEDS ORDERED: DUONEB 0.5 MG-3 MG/3 ML SOLN IH SCH (18:00)
[2019-01-26 18:08] LABS: ALANINE AMINOTRANSFERASE(ML) < 6 U/L (12-78)
--- NOTE | 2019-01-26 18:26 | DIREP ---
PROCEDURE:CHEST 1 VIEW COMPARISON:[facility], CR, XRAY CHEST SINGLE VW, 01/25/2019, 08:42 PM. INDICATIONS:SOB FINDINGS: LUNGS/PLEURA:New persistent mild bibasilar airspace disease without significant interval change. No definite pleural effusion. VASCULATURE:Normal. Unremarkable pulmonary vasculature. CARDIAC:Normal. No cardiac silhouette abnormality or cardiomegaly. MEDIASTINUM:Atherosclerotic aorta with no visible aneurysm. BONES:Mild degenerative spine disease and spondylosis without visible acute abnormalities. Bilateral glenohumeral and acromioclavicular osteoarthritis OTHER:Left-sided right paste about CONCLUSION:Stable chest radiograph without significant interval change Dictated by: Angel Luis Aguero DO on 01/26/2019 at 06:24 PM
--- NOTE | 2019-01-26 19:00 | NUR ---
[facility] BEDSIDE REPORT RECEIVED FROM Flaquita TAMAYO RN. INTRODUCED SELF, ASSUMED CARE. PATIENT DROWSY BUT ORIENTED. DENIES NEED AT THIS TIME. ASSESSMENT INITIATED.
[2019-01-26] MEDS: DUONEB 0.5 MG-3 MG/3 ML SOLN IH SCH (20:52)
[2019-01-26] MEDS: SOLU-MEDROL IV SCH (21:42)
[2019-01-27] VITALS (57 sets, daily range): BP systolic 85–127; BP diastolic 46–89
--- NOTE | 2019-01-27 00:15 | HPH ---
ADMIT DATE: 01/26/2019 CHIEF COMPLAINT: Dizziness, lightheadedness, low blood pressure 70/50. HISTORY OF PRESENT ILLNESS: The patient is a 78-year-old white male who has underlying history of COPD, high grade heart block, post-pacer implant and has underlying hypertension and benign prostatic hypertrophy with symptoms of prostatism on multiple prostate medications such as finasteride and alpha-mary agents and he was in the hospital about 3-4 weeks ago with pneumonia, had severe diarrhea with electrolyte imbalance with potassium of 1.9 and magnesium of 1.2 and he subsequently had pancytopenia, was sent to [place] under care of Dr. Augustus Schwartz and Dr. Johnson and his pneumonia did improve, but pancytopenia was related to myelodysplastic syndrome and he was [facility] [place] [facility] [place] [facility] and while [place] was in [place] [facility] on 01/25/2019, noted to have very low blood pressure, was sent to the Emergency Room and 2 liters of IV fluid was given. His blood pressure improved and he is back today in my office, feeling very poorly, feeling ill and he in the wheelchair. His blood pressure is 70/50 in sitting position, significant postural hypotension, autonomic hypotension with consideration with hypovolemia and hence the patient was admitted with hypotension, symptomatic status for IV fluids and management of his hypertension along with bilateral pulmonary infiltrates for further evaluation and management. ALLERGIES: None known. MEDICATIONS: From his last hospitalization include amiodarone 200 mg twice a day which he is not taking, aspirin 81 mg once a day, Pulmicort 0.5 mg nebulizer treatment twice a day, Lanoxin 0.125 mg daily, finasteride 5 mg once a day, Levothroid 25 mcg once a day, omeprazole 20 mg once a day, Crestor 10 mg once a day. He has been on Breo Ellipta 1 puff daily and he was sent to [place]. He was on Xopenex nebulizer treatment 4 times a day along with Pulmicort nebulizer treatment twice a day, topiramate 50 mg at bedtime, oxygen 2 liters nasal cannula and short-acting beta agonist inhaler therapy. PAST MEDICAL HISTORY: COPD, non-flow obstructive coronary artery disease and history of hypertension, history of prostatic hypertrophy, myelodysplastic syndrome, recent pneumonia, general debility, hypoproteinemia, hypoalbuminemia, electrolyte imbalance. See details on my office notes. He also has a recent pacer within a year. SOCIAL HISTORY: Prior history of significant smoking almost [id number] history of smoking, no history any ethanol abuse. FAMILY HISTORY: Not much available from the patient. PHYSICAL EXAMINATION: GENERAL: The patient appears ill, 167 cm, 49 kilograms, BMI 17.8. VITAL SIGNS: His initial blood pressure of 77/50, was given fluids that improved to 95/50 in ICU, pulse was 70, paced rhythm on P tracking noted and respirations are 18, 93% saturation on 2 liters nasal cannula. He has oxygen dependent COPD. SKIN: Cool and dry and poor turgor of skin and mucous membrane. NECK: No JVD was discernible, no carotid bruits. CHEST: Emphysematous chest. LUNGS: Poor air entry bilaterally. Decreased air entry at both bases with rales noted. HEART: Sounds S1, S2 normal. ABDOMEN: Scaphoid, no organomegaly. Proximal muscle wasting. EXTREMITIES: Distal pulses poorly felt. NEUROLOGIC: No focal neuro deficit is noted. PSYCHIATRIC: Slow mentation noted. LABORATORY DATA: White count is 10.7 which is improved, 7.6 hemoglobin, his platelets were 447,000. Electrolytes were normal. BUN is 29, creatinine 1.15, total protein 5.5, albumin 1.4. Blood gas of 7.41, pH with a pCO2 of 35, pO2 is 94 and D-dimer 2.3. Chest x-ray shows chronic changes and infiltrates in both bases. IMPRESSION: Hypotension, hypovolemia, rule out autonomic hypotension, pulmonary infiltrates, COPD, general debility, failure to thrive, dehydration, myelodysplastic syndrome with significant anemia, drop in hemoglobin. PLAN: At this time, admit the patient, IV fluids, followup hemoglobin, empiric antibiotics and hold all his medications and further management depend on the clinical course. Laxmichand MD TENA Rocha: ANEESH/parminder JOB# [id number]
[2019-01-27] MEDS: NS 1000ML/KCL 20MEQ 1,000 ML IV SCH ×3 (01:19→18:03)
[2019-01-27] MEDS: DUONEB 0.5 MG-3 MG/3 ML SOLN IH SCH ×4 (03:24→21:13)
--- NOTE | 2019-01-27 06:50 | NUR ---
RECEIVED REPORT AND PATIENT CARE ASSUMED. PATIENT LEFT WAKE LAYING IN BED. HOB ELEVATED 30 DEGREES. CALL LIGHT WITHIN EASY REACH.
--- NOTE | 2019-01-27 07:45 | NUR ---
MOBILITY PATIENT'S BED PLACED IN CHAIR POSITION FOR BREAKFAST. NO DISTRESS NOTED. CALL LIGHT WITHIN EASY REACH.
[2019-01-27 07:52] LABS: BASOPHIL % 0.2 % (0.0-0.2); HEMOGLOBIN 9.3 g/dL (13.9-16.3); LYMPHOCYTES # 0.9 10^3/uL (1.0-4.8); LYMPHOCYTES % 8.4 % (24.0-44.0); MEAN CELL HGB 30.3 pg (26-34); MEAN CELL HGB CONCENTRATION 31.7 g/dL (33-37); MEAN CORP VOLUME 95.4 fL (78-100); MEAN PLATELET VOLUME 9.2 fL (7.8-11.0); MONOCYTES # 0.1 10^3/uL (0.3-0.8); MONOCYTES % 1.1 % (5.0-12.0); NEUTROPHIL # 9.9 10^3/uL (1.8-7.7); RED CELL DISTRIBUTION WIDTH 16.3 % (11.5-14.5); WHITE BLOOD CELL 11.1 10^3/uL (4.5-11.0)
--- NOTE | 2019-01-27 08:28 | NUR ---
BREAKFAST PATIENT ATE 50% OF BREAKFAST. DENIES ANY FURTHER NEEDS AT THIS TIME.
[2019-01-27] MEDS: SOLU-MEDROL IV SCH ×2 (08:52→20:09)
[2019-01-27] MEDS ORDERED: NS 500ML 500 ML IV ONE (09:43)
--- NOTE | 2019-01-27 10:30 | NUR ---
HOLD TRANSFUSION DR. MEDLEY CALLED AND REQUEST CLARIFICATION OF CBC RESULTS SINCE HGB WAS 7.6 ON ADMISSION AND THIS AM WAS >9. LAB CALLED AND NOTIFIED REPEAT CBC REQUEST. BLOOD TRANSFUSION HELD AT THIS TIME.
[2019-01-27] MEDS ORDERED: TOPI50TA8 PO (10:53)
[2019-01-27] MEDS ORDERED: MIRT15TA4 PO (10:53)
[2019-01-27] MEDS ORDERED: TAMS-14 PO (10:53)
[2019-01-27] MEDS ORDERED: FURO40TA4 PO (10:53)
[2019-01-27] MEDS ORDERED: DICL75TA2 PO (10:53)
[2019-01-27] MEDS ORDERED: LOSA100T14 PO (10:53)
[2019-01-27] MEDS ORDERED: ATOR20TA PO (10:53)
[2019-01-27] MEDS ORDERED: METO-236 PO (10:53)
[2019-01-27] MEDS ORDERED: AMLO10TA8 PO (10:53)
--- NOTE | 2019-01-27 10:58 | NUR ---
DISCHARGE PLAN CM VISITED WITH CLARE HILL RN @ [facility] AND PATIENT IS THERE FOR SKILLED THERAPY. HE IS IN A W/C THERE AND A 1-2 PERSON ASSIST. DISCHARGE PLAN IS FOR PATIENT TO DISCHARGE BACK TO [facility] FOR SKILLED THERAPY. CM WILL CONTINUE TO MONITOR NEEDS.
[2019-01-27 11:36] LABS: BASOPHIL % 0.1 % (0.0-0.2); HEMOGLOBIN 9.3 g/dL (13.9-16.3); LYMPHOCYTES # 0.5 10^3/uL (1.0-4.8); LYMPHOCYTES % 3.9 % (24.0-44.0); MEAN CELL HGB 29.9 pg (26-34); MEAN CELL HGB CONCENTRATION 31.6 g/dL (33-37); MEAN CORP VOLUME 94.5 fL (78-100); MEAN PLATELET VOLUME 9.3 fL (7.8-11.0); MONOCYTES # 0.1 10^3/uL (0.3-0.8); MONOCYTES % 1.1 % (5.0-12.0); NEUTROPHIL # 12.3 10^3/uL (1.8-7.7); NEUTROPHILS % 94.1 % (41.0-85.0); PLATELET COUNT 449 10^3/uL (150-400); RED CELL DISTRIBUTION WIDTH 16.6 % (11.5-14.5); WHITE BLOOD CELL 13.1 10^3/uL (4.5-11.0)
--- NOTE | 2019-01-27 11:55 | NUR ---
CBC RESULTS DR. MEDLEY NOTIFIED OF [facility]&H NO BLOOD TRANSFUSION AT THIS TIME. MAY TRANSFER TO MED/SURG.
[2019-01-27 13:29] LABS: APPEARANCE,URINE CLEAR (CLEAR); BILIRUBIN,URINE NEGATIVE (NEGATIVE); UA COLOR YELLOW (YELLOW)
[2019-01-27 13:30] LABS: UROBILINOGEN,URINE NEGATIVE (NEGATIVE)
[2019-01-27 14:05] LABS: LYMPHOCYTE 1 % (25-36); MONOCYTE 3 % (3-9); SEGMENTED NEUTROPHILS 96 % (31-76)
[2019-01-27] MEDS: ROCEPHIN 1,000 MG in NS 100ML 100 ML IV SCH (18:02)
[2019-01-28] MEDS: NS 1000ML/KCL 20MEQ 1,000 ML IV SCH ×3 (02:27→17:10)
--- NOTE | 2019-01-28 03:21 | PNH ---
DATE: 01/27/2019 SUBJECTIVE: The patient is feeling much better, improved. OBJECTIVE: VITAL SIGNS: Pulse is 60, respirations 20, blood pressure is 117/70, 98 temperature. GENERAL: Color has improved. NECK: No JVD, no carotid bruits. LUNGS: Poor air entry bilaterally, chronic infiltrates in both lungs. LABORATORY DATA: White count is 13.1, hemoglobin is 9.3. We got a value of 7.6 hemoglobin, and it was repeated twice, it is 9.3, so it was a lab error 7.3. His chemistry yesterday showed a glucose of 108 and it is 197 today. We will follow through. His lactic acid was 0.9. No growth on blood cultures. Stable chest x-ray. IMPRESSION: Hypovolemia, hypotension, chronic obstructive pulmonary disease, post-pacer, myelodysplastic syndrome. PLAN: At this time, transfer to the floor. Probably hypotension related to vasodilator effect of multiple medications and side effect of alpha blockers. Probably discharge planning by 01/28/2019. Dayna Rocha MD DR: ANEESH/parminder JOB# [id number]
[2019-01-28] MEDS: DUONEB 0.5 MG-3 MG/3 ML SOLN IH SCH ×4 (03:35→20:50)
[2019-01-28 05:21] VITALS: BP 115/66
[2019-01-28 09:05] VITALS: BP 110/64
[2019-01-28] MEDS: SOLU-MEDROL IV SCH ×2 (09:36→20:35)
[2019-01-28] MEDS ORDERED: LEVO500T51 PO (12:53)
[2019-01-28] MEDS ORDERED: LEVA0.6320 IH (12:53)
[2019-01-28] MEDS ORDERED: BUDE0.5A3 IH (12:53)
[2019-01-28] MEDS ORDERED: ASPI-655 PO (12:53)
--- NOTE | 2019-01-28 14:12 | NUR ---
DISCHARGE [facility] UNABLE TO ACCEPT PT BACK UNTIL PREAUTHORIZATION IS OBTAINED FROM [facility]. SPOKE WITH CLARE SEBASTIAN RN FROM [facility]. CLARE STATES IT WOULD BE WEDNESDAY MORNING BEFORE SHE CAN CALL [facility]. DR MEDLEY NOTIFIED. DISCHARGE CANCELED.
[2019-01-28] MEDS: ROCEPHIN 1,000 MG in NS 100ML 100 ML IV SCH (17:10)
[2019-01-28 17:25] VITALS: BP 120/69
[2019-01-28 19:32] VITALS: BP 122/71
[2019-01-29 00:13] VITALS: BP 134/78
[2019-01-29] MEDS: NS 1000ML/KCL 20MEQ 1,000 ML IV SCH ×2 (01:47→08:43)
[2019-01-29] MEDS: DUONEB 0.5 MG-3 MG/3 ML SOLN IH SCH ×4 (03:47→20:15)
[2019-01-29 05:36] VITALS: BP 120/64
[2019-01-29 08:40] VITALS: BP 107/65
[2019-01-29] MEDS: SOLU-MEDROL IV SCH (08:42)
[2019-01-29] MEDS: GLUCOPHAGE XR PO SCH (08:43)
[2019-01-29 11:48] LABS: BASOPHIL % 0.1 % (0.0-0.2); EOSINOPHIL % 0.2 % (0.0-5.0); HEMOGLOBIN 7.8 g/dL (13.9-16.3); LYMPHOCYTES # 0.9 10^3/uL (1.0-4.8); MEAN CELL HGB 29.8 pg (26-34); MEAN CELL HGB CONCENTRATION 31.7 g/dL (33-37); MEAN CORP VOLUME 93.9 fL (78-100); MEAN PLATELET VOLUME 8.9 fL (7.8-11.0); MONOCYTES # 0.4 10^3/uL (0.3-0.8); MONOCYTES % 2.9 % (5.0-12.0); NEUTROPHIL # 11.4 10^3/uL (1.8-7.7); NEUTROPHILS % 87.3 % (41.0-85.0); RED CELL DISTRIBUTION WIDTH 16.6 % (11.5-14.5)
[2019-01-29 12:19] LABS: CALCIUM 7.8 mg/dL (8.4-10.5); CARBON DIOXIDE 20.1 mmol/L (20.0-32)
[2019-01-29 12:20] VITALS: BP 128/72
[2019-01-29 13:33] LABS: BAND NEUTROPHILS 1 % (2-6); LYMPHOCYTE 9 % (25-36); SEGMENTED NEUTROPHILS 87 % (31-76)
[2019-01-29 13:34] LABS: ANISOCYTOSIS 1+ (NEGATIVE); MONOCYTE 1 % (3-9); MYELOCYTES 1 %
--- NOTE | 2019-01-29 14:18 | PNH ---
DATE: 01/28/2019 SUBJECTIVE: The patient is doing well. OBJECTIVE: VITAL SIGNS: He is afebrile. Vital signs stable with a pulse of 79, respirations 18 and blood pressure was 122/71, saturation was 95%. NECK: No JVD, no carotid bruits. LUNGS: Clear. HEART: Sounds normal. LABORATORY DATA: White count was 13.1 and 9.3 hemoglobin and blood sugar was 222, may be early diabetic and start him on metformin 500 mg once a day. His initial chest x-ray on 01/26/2019 was unremarkable. He came with postural hypotension, very likely drug-induced polytherapy with multiple antihypertensive agents and has COPD and myelodysplastic syndrome and had a low hemoglobin value of 1, but I think it was more of a lab error. No blood transfusion was given. At the present time, his blood pressure is stable. He has been taken off multiple medications, which were probably contributing to his low blood pressure and hypovolemia and his blood pressure is stable. He has not required any other blood pressure medicines, may have new onset diabetes, started on metformin 500 mg once a day. Discharge planning initiated, but longterm would not take him because he is [employer] and they have to wait until Wednesday for him to be taken back to the longterm. Dayna Rocha MD DR: ANEESH/parminder JOB# [id number]
--- NOTE | 2019-01-29 14:18 | DIREP ---
PROCEDURE:CHEST 2 VIEWS COMPARISON:[facility], CR, XRAY CHEST SINGLE VW, 01/26/2019, 04:55 PM. INDICATIONS:copr FINDINGS: LUNGS/PLEURA: Infiltrates appear slightly worse. Bilateral pleural effusions. VASCULATURE: Indistinct. CARDIAC: No cardiomegaly. Left-sided pacemaker. RITA/MEDIASTINUM:No visible mass or adenopathy. BONES: No acute changes. No fracture or visible bony lesion. OTHER: No additional findings. CONCLUSION: 1. Infiltrates appear slightly worse. Dictated by: Josef Green M.D. On 01/29/2019 at 02:15 PM
--- NOTE | 2019-01-29 14:42 | PNH ---
DATE: SUBJECTIVE: The patient is [facility] to go back to the [facility], doing well, has an IV in him, which is causing extravasation. OBJECTIVE: VITAL SIGNS: Stable. Temperature 97, pulse 79, respirations 18, 134/78 blood pressure, 93 saturation on 2 liters nasal cannula. NECK: No JVD. LUNGS: Clear. HEART: Sounds normal. LABORATORY DATA: His biochemical labs are normal. PLAN: Waiting to go back to the [facility]. We will stop his IV and continue rest of the medications. He is on nebulizer treatment and he has been on Rocephin, which will also be stopped and he is not very much medication except metformin and DuoNeb and methylprednisone has been stopped too for his COPD. We will put him on prednisone and get a repeat chest x-ray and labs and discharge planning on 01/30/2019. Laxmichand MD Aj DR: ANEESH/parminder JOB# [id number]
[2019-01-29 16:36] VITALS: BP 133/62
[2019-01-29 19:41] VITALS: BP 130/80
[2019-01-29] MEDS: CIPRO PO SCH (20:49)
--- NOTE | 2019-01-29 23:20 | NUR ---
UA COLLECTED AND TAKEN TO LAB.
[2019-01-29 23:43] LABS: BILIRUBIN,URINE NEGATIVE (NEGATIVE); UROBILINOGEN,URINE NORMAL (NEGATIVE)
[2019-01-30 00:02] LABS: APPEARANCE,URINE CLEAR (CLEAR); UA COLOR YELLOW (YELLOW)
[2019-01-30 00:18] VITALS: BP 131/70
[2019-01-30] MEDS: DUONEB 0.5 MG-3 MG/3 ML SOLN IH SCH ×4 (03:56→20:20)
[2019-01-30 04:51] VITALS: BP 129/68
[2019-01-30 07:19] VITALS: BP 126/67
[2019-01-30] MEDS: GLUCOPHAGE XR PO SCH (08:59)
[2019-01-30] MEDS: PREDNISONE PO SCH (08:59)
[2019-01-30] MEDS: CIPRO PO SCH ×2 (08:59→20:30)
--- NOTE | 2019-01-30 11:18 | NUR ---
DISCHARGE PLAN CM FAXED CONCURRENT CLINICALS TO STEPHEN AT [facility]. PENDING AUTHORIZATION FROM [facility].
[2019-01-30 11:49] VITALS: BP 125/65
[2019-01-30 16:58] VITALS: BP 134/77
[2019-01-30 19:45] VITALS: BP 144/80
[2019-01-31 00:04] VITALS: BP 134/72
--- NOTE | 2019-01-31 01:39 | DSH ---
DATE OF DISCHARGE: 01/30/2019 IDENTIFICATION: A 78-year-old male. FINAL DIAGNOSES: Hypotension, hypovolemia, postural hypotension, chronic obstructive pulmonary disease, myelodysplastic syndrome, chronic lung infiltrates. Please refer to my history and physical to the point of my impression. HOSPITAL COURSE: The patient is a 78-year-old white male who was in the Emergency Room day before he got admitted and he got 2 units of fluid for a blood pressure of 70/50. He is on poly therapy at the [facility] after he got discharged from [facility], and he has seen Dr. Johnson and Dr. Augustus Schwartz for his pulmonary status for pneumonia and also myelodysplastic syndrome, and he got an injection in [facility] and his white cell and red cell count have been in the normal range. He has been on alpha mary agents and antihypertensive agents and his blood pressure was 70/50. He was admitted with hypotension, hypovolemia, hypovolemic shock, for management and was given fluids and all his medicines were stopped and his blood pressure has been stable. ____ declined his admission, although there is clearcut criterion that the patient after giving 2 liters of fluid the day before admission in ER still went into severe hypotension and was brought from the [facility] to my office and he was lethargic and his blood pressure was 70/50 with significant postural hypotension. After stopping all his medicines and giving him IV fluids, significant improvement has been achieved, and at the present time, he is going to be dismissed to the [facility] on aspirin 81 mg once a day, Pulmicort 0.5 mg twice a day, Xopenex 0.63 mg nebulizer treatment 3 times a day and for his urinary tract infection Levaquin 500 mg daily for next 5 days, Lipitor 20 mg once a day, diclofenac sodium 75 mg twice a day and he is on Breo Ellipta 1 tablet daily, Levothroid 25 mcg once a day, metoprolol 25 mg once a day, Remeron 15 mg once a day, omeprazole 20 mg once a day, topiramate 50 mg once a day. Amlodipine, Lasix, losartan, Crestor, and Flomax, all have been stopped at the present time. He was also on metoprolol, which was cut down to just 25 mg once a day. He will be coming back in the office for transition of care on 02/02/2019, and he will be on oxygen 2 liters nasal cannula. Dayna Rocha MD DR: ANEESH/parminder JOB# [id number]
[2019-01-31] MEDS: DUONEB 0.5 MG-3 MG/3 ML SOLN IH SCH ×2 (02:11→08:33)
[2019-01-31 04:05] VITALS: BP 129/70
--- NOTE | 2019-01-31 06:24 | NUR ---
DISCHARGE UPDATE JOSE MANUEL CR WITH MALI ASCENC[facility] THAT PT WILL NEED AN ORDER FOR A PT EVAL OR SCREEN. MALI STATED SHE WILL NOTIFY Patrick DALEY RN CHARGE.
[2019-01-31 07:29] VITALS: BP 131/74
[2019-01-31] MEDS: CIPRO PO SCH (08:24)
[2019-01-31] MEDS: PREDNISONE PO SCH (08:24)
[2019-01-31] MEDS: GLUCOPHAGE XR PO SCH (08:24)
--- NOTE | 2019-01-31 10:50 | NUR ---
STATUS THIS NURSE NOTICED Pt HAD SWOLLEN PENIS, Pt DENIES ANY PAIN AND NOT AWARE WHEN IT STARTED, PICTURE TAKEN. P[IC IN CHART WILL CONTINUE TO MONITOR THE Pt.
--- NOTE | 2019-01-31 11:14 | NUR ---
DISCHARGE UPDATE CM FAXED PT EVAL TO [facility]. STEPHEN BELL NOTIFIED.
[2019-01-31 11:30] VITALS: BP 123/69
--- NOTE | 2019-01-31 12:26 | NUR ---
TRANSITION OF CARE RECEIVED REPORT FROM ARABELLA YANEZ. ASSUMED CARE FOR PATIENT AT THIS TIME. PATIENT IS CURRENTLY RESTING IN CHAIR WITH EYES CLOSED, RESPIRATIONS EVEN, NON-LABORED WITH EQUAL CHEST RISE/FALL. NO S/S OF DISTRESS. CALL LIGHT IN REACH, WILL CONTINUE TO MONITOR PATIENT.
--- NOTE | 2019-01-31 14:05 | NUR ---
DISCHARGE PATIENT BEING DISCHARGED TO [facility] AT THIS TIME IN STABLE CONDITION. REPORT CALLED TO SONU KRISHNAMURTHY AT [facility]. PATIENT WAS TRANSPORTED BY [facility]. RELINQUISHED CARE FOR PATIENT AT THIS TIME.
[2019-01-31 14:13] VITALS: BP 123/69
== END 2019-01-31 14:16 ==
LOC: ICU 16:28 → INTOOBSV 16:28 → UNDOADMOB 16:28 → MS 01-27 15:55 → ICU 01-27 15:55 → MS 01-27 15:55 → UNDODISOB 01-31 14:16
PROVIDERS: ADMIT Specialist; ATTEND Specialist
DX: I95.1 Orthostatic hypotension (principal); E86.1 Hypovolemia; J44.9 Chronic obstructive pulmonary disease, unspecified; E86.0 Dehydration; I10 Essential (primary) hypertension; D46.9 Myelodysplastic syndrome, unspecified; Z87.891 Personal history of nicotine dependence
CPT/HCPCS: 36415 ×4; 36430; 36600 ×2; 71045 ×2; 71046; 80053 ×3; 81002; 82550; 82803 ×2; 82948 ×8; 83735 ×2; 83880 ×2; 84484; 85025 ×5; 85045; 85379; 85610; 85730; 86885; 86900 ×2; 86901; 86921; 87040 ×4; 87086; 93005; 94640 ×19; 96361 ×3; 96365; 96366 ×2; 96375; 96376 ×3; 97163; G0378 ×113; J0696 ×3; J2920 ×6; J7040; J7050 ×3; J7512 ×2; J7620 ×19; P9016; 99284; A6212; A9270

== ENCOUNTER 2019-02-14 20:11 | Emergency (ER) | payer MEDICARE ==
[~2019-02-14] VITALS: Ht 182.9 cm; Wt 68.0 kg
[2019-02-14] VITALS (9 sets, daily range): BP systolic 63–109; BP diastolic 37–58
[~2019-02-14 20:11] MED LIST changes: +ASPI-655 PO; +ATOR20TA PO; +FURO40TA4 PO; +LEVA0.6320 IH; +LEVO500T51 PO; +LOSA100T14 PO; +METO-236 PO; +MIRT15TA4 PO; +TAMS-14 PO
[2019-02-14] MEDS ORDERED: NS 1000ML 1,000 ML ONE ×2 (20:22→21:22)
[2019-02-14] MEDS ORDERED: NS IV SCH (20:30)
--- NOTE | 2019-02-14 20:35 | ER.PDOC ---
General Chief Complaint: Dyspnea/Respdistress Stated Complaint: DYSPNEA Time seen by MD: 20:29 Source: family, EMS, EMS notes reviewed, detention records Exam Limitations: clinical condition History of Present Illness Initial Comments Difficulty breathing today, had diarrhea yesterday Timing/Duration: unknown Severity: severe Prior Episodes/Possible Cause: occasional episodes, chronic episodes Associated Symptoms: wheezing Allergies: Coded Allergies: No Known Allergies (Unverified , 04/13/17) Home Meds Active Scripts Aspirin (ASPIRIN EC) 81 Mg Tablet.dr, 81 MG PO DAILY24 for 30 Days Prov:MONCHO MEDLEY MD 01/28/19 Levofloxacin (LEVAQUIN) 500 Mg Tablet, 500 MG PO DAILY24 for 5 Days Prov:MONCHO MEDLEY MD 01/28/19 Budesonide (PULMICORT) 0.5 Mg/2 Ml Ampul.neb, 0.5 MG IH BID for 14 Days Prov:MONCHO MEDLEY MD 01/28/19 Levalbuterol Hcl (XOPENEX) 0.63 Mg/3 Ml Vial.neb, 0.63 MG IH TID for 14 Days Prov:MONCHO MEDLEY MD 01/28/19 Reported Medications Topiramate (TOPIRAMATE) 50 Mg Tablet, 1 TAB PO BID, #60 TAB 1 Refill 01/27/19 Diclofenac Sodium (DICLOFENAC SODIUM) 75 Mg Tablet.dr, 1 TAB PO BID, #60 TAB 1 Refill 01/27/19 Mirtazapine (MIRTAZAPINE) 15 Mg Tablet, 1 TAB PO HS, #30 TAB 3 Refills 01/27/19 Metoprolol Succinate (METOPROLOL SUCCINATE) 25 Mg Tab.er.24h, 1 TAB PO HS, #30 TAB 5 Refills 01/27/19 Atorvastatin 20MG (LIPITOR 20MG) 20 Mg Tablet, 1 TAB PO HS, #90 TAB 3 Refills 01/27/19 Fluticasone/Vilanterol (Breo Ellipta 100-25 Mcg INH) 1 Each Aer.pow.ba, 1 EACH IH DAILY 04/14/17 Levothyroxine Sodium (LEVOTHYROXINE SODIUM) 25 Mcg Tablet, 1 TAB PO HS, #90 TAB 3 Refills 12/10/14 Omeprazole (OMEPRAZOLE) 20 Mg Capsule.dr, 1 CAP PO DAILY, #90 CAP 3 Refills 12/10/14 Past Medical History Medical History: COPD, diabetes Surgical History: no surgical history Social History Drug Use: none Review of Systems Constitutional: fever EENTM: no symptoms reported Respiratory: see HPI Cardiovascular: no symptoms reported Gastrointestinal: see HPI Musculoskeletal: no symptoms reported All Other Systems: Reviewed and Negative Physical Exam General Appearance: Moderate Distress Neck: Non-Tender, Full Range of Motion, Supple, Normal Inspection Respiratory: respiratory distress, crackles, wheezing Cardiovascular: Normal Peripheral Pulses, Regular Rate, Rhythm, No Edema, No Gallop, No JVD, No Murmur, Tachycardia Gastrointestinal: Normal Bowel Sounds, No Organomegaly, No Pulsatile Mass, Non Tender, Soft Extremities: Normal Range of Motion, Non-Tender, Normal Inspection, No Pedal Edema, No Calf Tenderness, Normal Capillary Refill Neurologic/Psychiatric: 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 (02/14/19 20:21) Ekg-Routine (02/14/19 20:21) 0.9 % Sodium Chloride (Ns 1000ml) (02/14/19 20:30) 0.9 % Sodium Chloride (Ns 1000ml) (02/14/19 20:22) Arterial Blood Gas (02/14/19 20:32) +Ref Lac Acid Yn (Sepsis Prot) (02/14/19 20:52) Ceftriaxone Sodium (Rocephin) (02/14/19 20:59) 0.9 % Sodium Chloride (Ns 1000ml) (02/14/19 21:22) 0.9 % Sodium Chloride (Ns 100ml) (02/14/19 21:30) Ceftriaxone Sodium (Rocephin) (02/14/19 21:30) Azithromycin (Zithromax) (02/14/19 21:50) Vital Signs Date Time Temp Pulse Resp B/P (MAP) Pulse Ox O2 Delivery O2 Flow Rate FiO2 02/14/19 21:43 105 33 103/52 (69) 97 02/14/19 21:30 98/37 (57) 02/14/19 21:28 99.7 02/14/19 21:28 114 34 02/14/19 21:13 107 39 93/52 (66) 71 02/14/19 20:58 118 38 109/58 (75) 74 02/14/19 20:58 118 38 109/58 (75) 74 C Pap 02/14/19 20:43 95 39 76/44 (55) 79 02/14/19 20:43 76/44 (55) 81 02/14/19 20:19 100.0 102 30 63/42 (49) 72 Mask 02/14/19 20:12 100.0 102 3 02/14/19 20:12 100.0 102 30 72 Mask 01/31/19 14:13 81 01/03/19 09:05 91 Administered Medications Medications (Trade) Dose Ordered Sig/Steff Route PRN Reason Start Time Stop Time Status Last Admin Dose Admin Sodium Chloride 2,041 ml @ 1,020.5 mls/ hr OT IV 02/14/19 20:30 03/16/19 20:29 02/14/19 20:43 1,020.5 MLS/HR Laboratory Tests Test 02/14/19 20:32 02/14/19 20:35 Blood Gas Sample Site LR Blood pH 7.389 (7.350-7.450) Blood Gas PCO2 24.8 mmHg (35.0-45.0) L Blood Gas PO2 46.9 mmHg (80.0-100.0) L Blood Gas HCO3 14.6 mmol/L (22.0-26.0) L Blood Gas Base Excess -8.8 mmol/L (-2.0-2.0) L Aly Test POSITIVE Arterial Blood Oxygen Saturation 79.9 % (94.0-97.00) L Deoxyhemoglobin 19.8 % (0.0-5.0) H Carboxyhemoglobin 1.1 % (0.0-3.9) Methemoglobin 0.5 % (0.00-5.0) Total Hemoglobin 11.1 % (12.0-17.8) L Total Oxygen Concentration 12.3 % (13.5-17.5) L Lactic Acid (Blood Gas) 3.2 mmol/1 (0.50-2.0) H Blood Gas Temperature 37.0 Oxygen Delivery Method NON-REBREATHER MASK FiO2 100 % (20-101) Bicarbonate 15.4 mmol/L (23-27) L White Blood Count 2.2 10^3/uL (4.5-11.0) L Red Blood Count 3.40 10^6/uL (4.50-5.90) L Hemoglobin 10.2 g/dL (13.9-16.3) #L Hematocrit 31.7 % (37.0-53.0) L Mean Corpuscular Volume 93.2 fL (78-100) Mean Corpuscular Hemoglobin 30.0 pg (26-34) Mean Corpuscular Hemoglobin Concent 32.2 g/dL (33-37) L Red Cell Distribution Width 18.0 % (11.5-14.5) H Platelet Count 351 10^3/uL (150-400) Mean Platelet Volume 9.7 fL (7.8-11.0) Neutrophils (%) (Auto) 51.4 % (41.0-85.0) Lymphocytes (%) (Auto) 38.5 % (24.0-44.0) Monocytes (%) (Auto) 5.0 % (5.0-12.0) Neutrophils # (Auto) 1.1 10^3/uL (1.8-7.7) L Lymphocytes # (Auto) 0.9 10^3/uL (1.0-4.8) L Monocytes # (Auto) 0.1 10^3/uL (0.3-0.8) L Absolute Immature Granulocyte (auto 0.01 10^3 u/L (0-2) Immature Granulocytes % 0.50 % (0.00-0.50) Eosinophils % 4.1 % (0.0-5.0) Basophils % 0.5 % (0.0-0.2) H Basophils # 0.0 10^3/uL (0.0-0.1) Eosinophil Count 0.1 10^3/uL (0.0-0.2) Prothrombin Time 11.6 SEC (9.4-11.5) H Prothrombin Time INR (Non-Therap) 1.1 Activated Partial Thromboplast Time 28.0 SEC (24.67-30.72) D-Dimer 8.94 mg/L (0.19-0.49) *H Sodium Level 140 mmol/L (132-145) Potassium Level 3.5 mmol/L (3.6-5.2) L Chloride Level 108.0 mmol/L (96-109) Carbon Dioxide Level 15.2 mmol/L (20.0-32) L Anion Gap 20.3 Blood Urea Nitrogen 26 mg/dL (7-18) H Creatinine 1.21 mg/dL (0.59-1.40) Estimated GFR () 70.4 (>/=60) BUN/Creatinine Ratio 21.0 Glucose Level 143 mg/dL (70-110) H Calcium Level 7.8 mg/dL (8.4-10.5) L Total Bilirubin 0.4 mg/dL (0.2-1.0) Aspartate Amino Transferase (AST) 14 U/L (0-35) Alanine Aminotransferase (ALT) 6 U/L (12-78) L Alkaline Phosphatase 110 U/L (50-136) Total Creatine Kinase 153 U/L (39-308) Troponin I 0.03 ng/mL (0.00-0.05) Pro-B-Type Natriuretic Peptide 1699 pg/mL (0-450) H Total Protein 5.8 g/dL (6.4-8.2) L Albumin 2.0 g/dL (3.4-5.0) L Globulin 3.8 Progress Progress CXR: Worsening bilateral airspace disease worse on the left. Correlate for pneumonia. Spoke to Dr. Medley and he told me to transfer patient to [place] Departure Time of Disposition: 21:56 Disposition: 02 XFER T-[facility] Impression: Primary Impression: Sepsis Additional Impressions: Respiratory failure with hypoxia Pneumonia Myelodysplasia (myelodysplastic syndrome) Condition: Critical Referrals: DEJUAN LEYVA GRIPPER MACHINE OPERATOR (PCP) PRIMARY CARE PROVIDER Additional Instructions: Transfer to [facility] ED for Dr. Tate Duration or Time Spent with Pa: 60 mins Critical Care Note Total Time (mins): 60 Problem Qualifiers Primary Impression: Sepsis Sepsis type: sepsis due to unspecified organism Sepsis acute organ dysfunction status: unspecified Qualified Codes: A41.9 - Sepsis, unspecified organism Additional Impressions: Respiratory failure with hypoxia Chronicity: unspecified Qualified Codes: J96.91 - Respiratory failure, unspecified with hypoxia Pneumonia Pneumonia type: due to unspecified organism Laterality: bilateral Lung location: unspecified part of lung Qualified Codes: J18.9 - Pneumonia, unspecified organism GERMAINE RAYMOND MD Feb 14, 2019 20:35
--- NOTE | 2019-02-14 20:46 | DIREP ---
PROCEDURE:CHEST 1 VIEW COMPARISON:[facility], CR, XRAY CHEST 2 VWS, 01/29/2019, 01:08 PM. [facility], CR, XRAY CHEST SINGLE VW, 01/26/2019, 04:55 PM. INDICATIONS:SOB FINDINGS: LUNGS/PLEURA:Worsening bilateral airspace disease, greater on the left. Diffuse interstitial thickening. VASCULATURE:Normal. Unremarkable pulmonary vasculature. CARDIAC:Normal. No cardiac silhouette abnormality or cardiomegaly. MEDIASTINUM:Calcified plaque in the aorta. Dual lead left chest pacemaker. BONES:Bones are osteopenic. OTHER:Negative. CONCLUSION:Worsening bilateral airspace disease worse on the left. Correlate for pneumonia. Dictated by: Jama Rowan M.D. on 02/14/2019 at 08:45 PM
[2019-02-14 20:51] LABS: ABG PCO2 24.8 mmHg (35.0-45.0); ABG PH 7.389 (7.350-7.450); BE(B) -8.8 mmol/L (-2.0-2.0); HCO3act 14.6 mmol/L (22.0-26.0); pO2 46.9 mmHg (80.0-100.0)
[2019-02-14 20:58] LABS: BASOPHIL % 0.5 % (0.0-0.2); EOSINOPHIL # 0.1 10^3/uL (0.0-0.2); EOSINOPHIL % 4.1 % (0.0-5.0); HEMOGLOBIN 10.2 g/dL (13.9-16.3); LYMPHOCYTES # 0.9 10^3/uL (1.0-4.8); LYMPHOCYTES % 38.5 % (24.0-44.0); MEAN CELL HGB CONCENTRATION 32.2 g/dL (33-37); MEAN CORP VOLUME 93.2 fL (78-100); MEAN PLATELET VOLUME 9.7 fL (7.8-11.0); MONOCYTES # 0.1 10^3/uL (0.3-0.8); NEUTROPHIL # 1.1 10^3/uL (1.8-7.7); NEUTROPHILS % 51.4 % (41.0-85.0); WHITE BLOOD CELL 2.2 10^3/uL (4.5-11.0)
[2019-02-14] MEDS ORDERED: ROCEPHIN 1,000 MG in NS 100ML 100 ML IV STA (20:59)
[2019-02-14 21:17] LABS: CALCIUM 7.8 mg/dL (8.4-10.5); CARBON DIOXIDE 15.2 mmol/L (20.0-32)
--- NOTE | 2019-02-14 21:20 | NUR ---
CHAPARRO Pizano Mba on phone with [facility] transfer line
--- NOTE | 2019-02-14 21:21 | PCM.EKG ---
[facility] Test Date: 2019-02-14 Test Time: 20:31:01 Pat Name: LEE ANN STERN Department: Room: Gender: M Manager Code: FABIANA : 1940 Requested By: GERMAINE RAYMOND Order Number: [id number] Reading MD: Germaine RAYMOND Measurements Intervals [place] Rate: 121 P: MN: QRS: 74 QRSD: 72 T: 231 QT: 348 QTc: 494 Interpretive Statements Accelerated Junctional rhythm with occasional premature ventricular complexes Marked ST abnormality, possible anterior subendocardial injury Abnormal ECG Compared to ECG 01/25/2019 20:56:59 Accelerated junctional rhythm now present Ventricular premature complex(es) now present ST (T wave) deviation now present Ventricular-paced complex(es) or rhythm no longer present Electronically Signed On 02-15-2019 3:59:15 CDT by Germaine RAYMOND Please click the below link to view image of tracing.
--- NOTE | 2019-02-14 21:29 | NUR ---
Critical Lab Value Lab called critical D-Dimer of 8.94. Dr. Lynch notified
[2019-02-14] MEDS ORDERED: NS 100ML 100 ML IV ONE (21:30)
[2019-02-14] MEDS ORDERED: ROCEPHIN ONE (21:30)
--- NOTE | 2019-02-14 21:44 | NUR ---
[facility] accepted patient to ER. Dr. Tate is the accepting
[2019-02-14] MEDS ORDERED: ZITHROMAX 500 MG in NS 250ML 250 ML IV STA (21:50)
[2019-02-14] MEDS ORDERED: NS 250ML 250 ML IV ONE (21:55)
--- NOTE | 2019-02-14 22:14 | NUR ---
Dispatch Dispatch notified of transfer to [facility]
--- NOTE | 2019-02-14 22:19 | NUR ---
Report Report given to Ya at [facility]
--- NOTE | 2019-02-14 22:25 | NUR ---
[facility] at patients bedside
--- NOTE | 2019-02-15 04:23 | PCM.EKG ---
[facility] Test Date: 2019-02-14 Test Time: 22:17:53 Pat Name: LEE ANN STERN Department: Room: Gender: M Residential Monitor: LOKI : 1940 Requested By: GERMAINE RAYMOND Order Number: [id number] Reading MD: Germaine RAYMOND Measurements Intervals Pyrites Rate: 108 P: 40 IN: 168 QRS: 27 QRSD: 70 T: 269 QT: 310 QTc: 415 Interpretive Statements Demand pacemaker, interpretation is based on intrinsic rhythm Sinus tachycardia with fusion complexes Marked ST abnormality, possible inferior subendocardial injury Abnormal ECG Compared to ECG 02/14/2019 20:31:01 Fusion complex(es) now present Accelerated junctional rhythm no longer present Ventricular premature complex(es) no longer present ST (T wave) deviation still present Electronically Signed On 02-20-2019 9:55:53 CDT by Germaine RAYMOND Please click the below link to view image of tracing.
== END 2019-02-14 22:28 | disposition short-term general hospital (02) ==
LOC: ER 20:11 → EDBD 20:11 → ER 22:28
DX: A41.9 Sepsis, unspecified organism (principal); J96.91 Respiratory failure, unspecified with hypoxia; D46.9 Myelodysplastic syndrome, unspecified; J18.9 Pneumonia, unspecified organism; E11.9 Type 2 diabetes mellitus without complications; J44.0 Chronic obstructive pulmonary disease with (acute) lower respiratory infection; Z79.82 Long term (current) use of aspirin; Z79.899 Other long term (current) drug therapy; Z79.2 Long term (current) use of antibiotics
CPT/HCPCS: 36415; 36600; 71045; 80053; 82550; 82803; 83880; 84484; 85025; 85379; 85610; 85730; 87040 ×2; 87077; 87186 ×2; 93005 ×2; 94660; 96361; 96365; 96367; 99291; J0456; J0696 ×2; J7030 ×2; J7050 ×4; 83605